=== PATIENT | female | born 1960 | race Caucasian/White ===

== ENCOUNTER → 2018-08-17 09:56 | Outpatient (CLI) | payer BC, SELFPAY ==
--- NOTE | 2018-08-17 10:02 | XR_ITS ---
XR foot wt bearing RT 3V HISTORY: ITS.REASON: pain ORDERING PHYSICIAN: Lula Mcelroy DPM PATIENT AGE: 58 years COMPARISON: None FINDINGS: There is normal alignment. Osteoarthritic changes are present at the first metatarsophalangeal joint. There is minimal ossification dorsally at the metatarsal tarsal joint. A small calcaneal spurs present. There is a spur projecting along the dorsal and distal aspect of the first metatarsal measuring 5 mm. IMPRESSION: Osteoarthritic changes
--- NOTE | 2018-08-17 10:02 | XR_ITS ---
XR foot wt bearing LT 3V HISTORY: ITS.REASON: Pain ORDERING PHYSICIAN: Lula Mcelroy DPM PATIENT AGE: 58 years COMPARISON: None FINDINGS: No fracture or dislocation. No lytic or blastic change. There is normal mineralization.. The joint spaces are well-preserved. No significant degenerative/arthritic changes. No erosive changes evident. There is mild bony hypertrophy dorsally at the cuneiform area. There is a small calcaneal spur. IMPRESSION: Mild degenerative changes, no acute finding
== END ==
PROVIDERS: Visit Provider Podiatrist
DX: M79.672 Pain in left foot (principal); M79.671 Pain in right foot; M19.072 Primary osteoarthritis, left ankle and foot; M19.071 Primary osteoarthritis, right ankle and foot
CPT/HCPCS: 73630

== ENCOUNTER 2020-03-09 16:10 | Emergency (ER) | payer BC, SELFPAY ==
[2020-03-09 16:20] VITALS: BP 133/106; PULSE 124; RESP 20; TEMP 37; O2SAT 96; BMI 35.5
--- NOTE | 2020-03-09 16:41 | HMH.EDUTC ---
[facility] [place] Clinical Impression: Encounter for laboratory testing for COVID-19 virus, Close exposure to COVID-19 virus Disposition: Home, Self-Care Condition on Discharge: Good Instructions: DI for Cough -- Adult, Preventing the Spread of Coronavirus Discharge Instructions Additional Instructions: *Monitor Temp, Over the counter Motrin or Tylenol as directed/as needed Tylenol every 4 hours and Motrin every 6 hours (as long as your family doctor has told you that you can take it) for fever or pain. and straight to ER if unable to lower temp less than 101.0 after medication given *Warm salt water gargles may help to soothe the throat *Throat Lozenges *Warm fluids like tea with honey may help to soothe the throat *Sleep elevated *Humidifier/Vaporizer *Flonase 2 sprays in each nostril daily but be aware that it may take 2-3 days before you notice improvement Follow up IMMEDIATELY for new or worsening symptoms or no Noticeable improvement over the next 48-72 hours. 911 for difficulty breathing or swallowing You was tested for today for COVID19 your test result should be back in the next 24-48 hours, you may call back on Friday to see if your test results are back and the result You was given a handout with instructions for Self Quarantine and Self isolation for while you wait on test results and what to do if they are positive Referrals: PCP,No [Primary Care Provider] - As needed Forms: Work/School Release Time of Disposition: 16:46 Medical Decision Making - Delmar Inquiry Pt receiving controlled substance: No Delmar was queried for this patient: No Vital Signs: 03/09/20 16:20 03/09/20 16:45 03/09/20 16:47 Temperature 98.6 F 98.6 F Temperature Source Oral Pulse Rate 109 H Pulse Rate [Right Brachial] 124 H 109 H Respiratory Rate 20 20 Blood Pressure 128/92 H Blood Pressure [Right Arm] 133/106 H 128/92 H Blood Pressure Mean [Right Arm] 115 104 Blood Pressure Source [Right Arm] Automatic Cuff Automatic Cuff Blood Pressure Position [Right Arm] Sitting Sitting 02 Sat by Pulse Oximetry 96 Oxygen Delivery Method Room Air Orders (Tests/Meds): ORDERS Category Date Time Status Covid-19 Nasal PCR Sendout [facility] Stat Lab 03/09/20 16:25 [place] [facility] [place] - General Stated complaint: COVID Exposure Time Seen by Provider: 03/09/20 16:41 Mode of Arrival: Ambulatory Source of Information: Patient Limitations: No Limitations Description of Symptoms (Recalled from Triage Doc. by RN): PATIENT C/O BACK AND LEG PAIN AND CHILLS X 2 DAYS. TESTED POSITIVE FOR COVID ON FRIDAY. PATIENT REQUESTING COVID TEST HEENT Symptoms (Recalled from RN notes): No Resp Symptoms (Recalled from RN notes): No Skin Symptoms (Recalled from RN notes): No MS Symptoms (Recalled from RN notes): Yes Functional Status (Recalled from RN notes): WNL - History of Present Illness Provider Complaint: Patient state that her tested positive for COVID about 2 days ago States that she has been having body aches, chills, and feeling achy all over States that she is concerned she may have it now too Denies Shortness of breath states that she come in to get tested - Related Data Home Medications Medication Instructions Recorded Confirmed atorvastatin 80 mg tablet 80 mg PO 30 Days tab 08/17/18 10/05/18 levothyroxine 50 mcg tablet 50 mcg PO 90 Days tab 08/17/18 10/05/18 losartan 100 1 tab PO 30 Days tab 08/17/18 10/05/18 mg-hydrochlorothiazide 25 mg tablet Previous Rx's Medication Instructions Recorded ciclopirox 0.77 % topical gel 1 applic TOPICAL ONCE 90 Days #30 g 08/17/18 diclofenac sodium 1 % topical gel 4 g TOPICAL QID #30 g 08/17/18 Allergies Allergy/AdvReac Type Severity Reaction Status Date / Time Penicillins Allergy Unknown Verified 10/05/18 15:24 Sulfa (Sulfonamide AdvReac Rash Verified 10/05/18 15:24 Antibiotics) - Worker's Comp Is this a Worker's Comp case?: No [facility]
[2020-03-09 16:45] VITALS: BP 128/92; PULSE 109
[2020-03-09 16:47] VITALS: BP 128/92; PULSE 109; RESP 20; TEMP 37; O2SAT 96
[2020-03-11 15:50] LABS: Covid-19 Nasal PCR Sendout Lex Positive
--- NOTE | 2020-03-11 15:58 | PC.NURSE ---
Pt called 03/11/2020 at 1553 and given Covid-19 results. Positive
== END 2020-03-09 16:52 | disposition home or self-care (01) ==
PROVIDERS: Nurse Practitioner Family; Emergency Provider Nurse Practitioner
DX: U07.1 COVID-19 (principal); I10 Essential (primary) hypertension; E78.5 Hyperlipidemia, unspecified; E03.9 Hypothyroidism, unspecified; Z79.899 Other long term (current) drug therapy
CPT/HCPCS: 99202; U0004

== ENCOUNTER 2021-05-25 13:38 | Emergency (ER) | payer BC, SELFPAY ==
[2021-05-25 14:45] VITALS: BP 141/80; PULSE 93; RESP 20; TEMP 37.4; O2SAT 95; BMI 37.9
--- NOTE | 2021-05-25 15:09 | HMH.EDUTC ---
[facility] [place] Disposition Clinical Impression: Viral syndrome Disposition: Home, Self-Care Condition on Discharge: Good Instructions: DI for Viral Syndrome Additional Instructions: *Monitor Temp, Over the counter Motrin or Tylenol as directed/as needed Tylenol every 4 hours and Motrin every 6 hours (as long as your family doctor has told you that you can take it) for fever or pain. and straight to ER if unable to lower temp less than 101.0 after medication given *Warm salt water gargles may help to soothe the throat *Throat Lozenges *Warm fluids like tea with honey may help to soothe the throat *Sleep elevated *Humidifier/Vaporizer Your throat swab was sent for culture. Those results are typically sent to your primary care. Be sure to follow up in 2-3 days with your family doctor/primary care physician if no improvement so they can review those result and treat if necessary. If you don?t have a primary care doctor, I recommend you get one but in the mean time, you will have to return to a walk in clinic Follow up IMMEDIATELY for new or worsening symptoms or no Noticeable improvement over the next 48-72 hours. 911 for difficulty breathing or swallowing You were tested for today for COVID19 your test result should be back in the next 24-48 hours, you may check your results on the [facility] my health Portal if you have trouble logging on you can call Tech Support You was given a handout with instructions for Self Quarantine and Self isolation for while you wait on test results and what to do if they are positive If you are positive the Health Dept will be contacting you also Make sure to take your Vitamins Vit. C Vit D and Zinc if you can take them Prescriptions: Benzonatate [Benzonatate 100mg cap] 100 mg PO Q8HP PRN #15 cap PRN Reason: Cough Transmission Status: Pending to [facility] Referrals: Provider,Referral, [Primary Care Provider] - As needed Time of Disposition: 15:36 Medical Decision Making - Delmar Inquiry Pt receiving controlled substance: No Delmar was queried for this patient: No Vital Signs: 05/25/21 14:45 Temperature 99.3 F Temperature Source Oral Pulse Rate [Right Brachial] 93 H Respiratory Rate 20 Blood Pressure [Right Arm] 141/80 H Blood Pressure Mean [Right Arm] 100 Blood Pressure Source [Right Arm] Automatic Cuff Blood Pressure Position [Right Arm] Sitting 02 Sat by Pulse Oximetry 95 Oxygen Delivery Method Room Air - Lab Data Lab results reviewed: Yes: I reviewed the patient's lab results. Lab Results 05/25/21 15:06: Group A Strep Rapid Negative 05/25/21 15:06: Influenza Type A Ag Negative, Influenza Type B Ag Negative Orders (Tests/Meds): ORDERS Category Date Time Status Covid-19 Nasal PCR ([facility]) Routine Lab 05/25/21 15:06 Received Strep Screen Confirmation Stat Micro 05/25/21 15:06 Received [facility] [place] HPI - General Stated complaint: covid symptoms Time Seen by Provider: 05/25/21 15:09 Mode of Arrival: Ambulatory Source of Information: Patient Limitations: No Limitations Description of Symptoms (Recalled from Triage Doc. by RN): PATIENT C/O SOA, SINUS DRAINAGE AND FATIGUE HEENT Symptoms (Recalled from RN notes): No Resp Symptoms (Recalled from RN notes): Yes Skin Symptoms (Recalled from RN notes): No MS Symptoms (Recalled from RN notes): No Functional Status (Recalled from RN notes): WNL - History of Present Illness Provider Complaint: Patient states that she wanted to get tested for COVID Flu and Strep and get her lungs listened too States that she noticed a few days ago she was having some sinus drainage in the back of her throat and felt tired and achy States that today she was still not feeling well so she came in to get checked State that at times she gets a little winded but has been seeing the Tax Accountant due to that - Related Data Home Medications Medication Instructions Recorded Confirmed atorvastatin 80 mg tablet 80 mg PO 30 Days tab 08/17/18
[2021-05-25 15:17] LABS: UTC Influenza A Antigen Negative (Negative); UTC Influenza B Antigen Negative (Negative)
[2021-05-25 15:34] LABS: Strep Scrn Group A (Rapid) Negative (Negative)
[2021-05-25 15:37] VITALS: BP 141/80; PULSE 93; RESP 20; TEMP 37.4; O2SAT 95
== END 2021-05-25 15:49 | disposition home or self-care (01) ==
PROVIDERS: Emergency Provider Nurse Practitioner
DX: U07.1 COVID-19 (principal); E03.9 Hypothyroidism, unspecified; I10 Essential (primary) hypertension; E78.5 Hyperlipidemia, unspecified
CPT/HCPCS: 87430; 87804; 99203; C9803; G0463; U0003; U0005

== ENCOUNTER → 2021-09-21 11:09 | Outpatient (CLI) | payer BC, SELFPAY ==
--- NOTE | 2021-09-21 11:26 | XR_ITS ---
FINAL REPORT CLINICAL HISTORY: SHORTNESS OF AIR ON EXERTION FINDINGS: Two views of the chest were obtained. The heart size and pulmonary vascularity are within normal limits. The mediastinum is normal. No acute pulmonary abnormality is identified. There is no pneumothorax. The bony thorax is intact. IMPRESSION: No active cardiopulmonary disease. Reviewed, Interpreted and Dictated by José Miguel Brandon III, MD Transcribed by Janene Bladerrama Authenticated by José Miguel Brandon III, MD on 09/21/2021 01:37:29 PM [facility]
[2021-09-21 11:58] LABS: Basophils % 0.6 % (0.1-2.0); Eosinophils # 0.1 K/mm3 (0.0-0.4); Hematocrit 41.3 % (37.0-47.0); Hemoglobin 13.7 g/dL (12.2-16.2); Lymphocytes # 1.9 K/mm3 (0.7-4.5); Lymphocytes % 38.4 % (10-50); Mean Corpuscular HGB Conc 33.2 g/dL (31.8-35.4); Mean Corpuscular Hemoglobin 28.9 pg (27.0-31.2); Mean Corpuscular Volume 87.3 fl (81-99); Mean Platelet Volume 9.3 fl (7.4-10.4); Monocytes # 0.3 K/mm3 (0.1-1.0); Neutrophils # 2.6 K/mm3 (1.8-7.8); Platelet Count 227 K/mm3 (142-424); Red Blood Count 4.74 M/mm3 (4.20-5.40); Red Cell Distribution Width 13.9 % (11.5-17.5); White Blood Count 4.9 K/mm3 (4.8-10.8)
[2021-09-21 12:34] LABS: Alanine Aminotransferase 35 U/L (12-78); Albumin Level 4.3 g/dl (3.5-5.0); Albumin/Globulin Ratio 1.9 (1.1-1.8); Alkaline Phosphatase 104 U/L (38-126); Anion Gap 11.4 mEq/L (5-15); Aspartate Amino Transferase 31 U/L (14-36); Bilirubin,Total 1.1 mg/dl (0.2-1.3); Blood Urea Nitrogen 15 mg/dl (7-17); Calcium 9.2 mg/dl (8.4-10.2); Carbon Dioxide 28 mmol/L (22.0-30.0); Chloride 101 mmol/L (98-107); Chol/HDL Ratio 4.2 (1-3.5); Cholesterol 267 mg/dl (140-200); Estimated Glomerular Filt Rate 64 ml/min (>60); GFR (African American) 77 ML/MIN (>60); Globulin 2.3 g/dL (1.3-3.2); Glucose 111 mg/dl (74-100); HDL Cholesterol 63 mg/dl (40-60); Potassium 4.4 mmoL/L (3.5-5.1); Sodium 136 mmol/L (136-145); Total Protein,Serum 6.6 g/dl (6.3-8.2); Triglycerides 99 mg/dl (30-150); VLDL Cholesterol 20 mg/dL (0-40)
[2021-09-21 12:44] LABS: Direct LDL Cholesterol 163.71 mg/dL (100-129)
[2021-09-21 12:50] LABS: Free T4 (Free Thyroxine) 1.16 ng/dl (0.78-2.19)
[2021-09-21 13:04] LABS: Thyroid Stimulating Hormone 2.82 uIU/mL (0.465-4.68)
[2021-09-21 13:40] LABS: Vitamin B12 315 pg/mL (239-931)
== END ==
PROVIDERS: PCP Nurse Practitioner Family; Visit Provider Nurse Practitioner Family
DX: R06.09 Other forms of dyspnea (principal)
CPT/HCPCS: 36415; 71046; 80053; 80061; 82306; 82607; 82746; 83036; 84439; 84443; 85025

== ENCOUNTER → 2022-03-12 08:15 | Outpatient (CLI) | payer BC, SELFPAY ==
--- NOTE | 2022-03-12 08:17 | MM_ITS ---
PROCEDURE INFORMATION: Exam: Bilateral Screening 3D Mammography Exam date and time: 03/12/2022 8:18 AM Age: 61 years old Clinical indication: Screening examination. Her brother had breast cancer. TECHNIQUE: Imaging protocol: Bilateral Screening tomosynthesis and 2D mammography including computer-aided detection (CAD) when performed. COMPARISON: 1. Note that the prior mammograms are corrupted and cannot be used for comparison. If other prior mammograms are provided, I am happy to add an addendum. 2. BOB ROBERT DIGITAL SCREEN BILATERAL 01/24/2021 11:32 AM FINDINGS: MAMMOGRAPHY: Breast composition: The breasts are heterogeneously dense, which may obscure small masses. Mass: None. Architectural distortion: None. Calcifications: No suspicious calcifications. Asymmetric density: None. Skin thickening: None. Axillary adenopathy: None. IMPRESSION: Note comment regarding prior mammograms No mammographic evidence of malignancy. Annual screening is recommended unless otherwise clinically indicated. ASSESSMENT: BI-RADS Category 1: Negative
== END ==
PROVIDERS: PCP Nurse Practitioner Family; Visit Provider Nurse Practitioner Family
DX: Z12.31 Encounter for screening mammogram for malignant neoplasm of breast (principal)
CPT/HCPCS: 77063; 77067

== ENCOUNTER → 2022-06-21 14:12 | Outpatient (CLI) | payer BC, SELFPAY ==
--- NOTE | 2022-06-21 | XR_ITS ---
FINAL REPORT CLINICAL HISTORY: .pain FINDINGS: AP, oblique and lateral views of the left foot were obtained. There is no prior exam for comparison. There is no acute fracture or dislocation. There is multi joint degenerative disease, most pronounced at the midfoot. Soft tissues are normal. IMPRESSION: No acute osseous abnormality of the left foot. Multi joint degenerative disease. Reviewed, Interpreted and Dictated by Yadi Cabello MD Transcribed by Sulema San Authenticated and [facility]
--- NOTE | 2022-06-21 | XR_ITS ---
FINAL REPORT CLINICAL HISTORY: .pain FINDINGS: AP and lateral views of the left knee were obtained. There is no prior exam for comparison. There is no acute fracture or dislocation. There is degenerative joint disease. No joint effusion is identified. Soft tissues are normal. IMPRESSION: No acute osseous abnormality of the left knee. Degenerative joint disease. Reviewed, Interpreted and Dictated by Yadi Cabello MD Transcribed by Sulema San Authenticated and [facility]
--- NOTE | 2022-06-21 14:21 | XR_ITS ---
FINAL REPORT CLINICAL HISTORY: PAIN FINDINGS: AP and lateral views of the right knee were obtained. There is no prior exam for comparison. There is no acute fracture or dislocation. There is degenerative joint disease. No joint effusion is identified. Soft tissues are normal. IMPRESSION: No acute osseous abnormality of the right knee. Degenerative joint disease. Reviewed, Interpreted and Dictated by Yadi Cabello MD Transcribed by Sulema San Authenticated and [facility]
--- NOTE | 2022-06-21 14:21 | XR_ITS ---
FINAL REPORT CLINICAL HISTORY: PAIN COMPARISON: none FINDINGS: Three views of the right hand were obtained. There is no prior exam for comparison. There is no acute fracture or dislocation. There is multi joint degenerative disease most pronounced at the 1st carpometacarpal joint. No acute soft tissue abnormality. IMPRESSION: Degenerative changes with no acute osseous abnormality of the right hand. Reviewed, Interpreted and Dictated by Yadi Cabello MD Transcribed by Janene Balderrama Authenticated and [facility]
--- NOTE | 2022-06-21 14:21 | XR_ITS ---
FINAL REPORT CLINICAL HISTORY: PAIN COMPARISON: none FINDINGS: Three views of the left hand were obtained. There is no prior exam for comparison. There is no acute fracture of the left hand. There is multi joint degenerative disease most pronounced at the 1st carpometacarpal joint. No acute soft tissue abnormality. IMPRESSION: Degenerative changes with no acute osseous abnormality of the left hand. Reviewed, Interpreted and Dictated by Yadi Cabello MD Transcribed by Janene Balderrama Authenticated and [facility]
--- NOTE | 2022-06-21 14:21 | XR_ITS ---
FINAL REPORT CLINICAL HISTORY: PAIN COMPARISON: 08/17/2018 FINDINGS: AP, oblique and lateral views of the right foot were obtained. There is no prior exam for comparison. There is no acute fracture or dislocation. There is multi joint degenerative disease, most pronounced at the 1st metatarsophalangeal joint. Soft tissues are normal. IMPRESSION: No acute osseous abnormality of the right foot. Multi joint degenerative disease. Reviewed, Interpreted and Dictated by Yadi Cabello MD Transcribed by Sulema San Authenticated and [facility]
== END ==
PROVIDERS: PCP Nurse Practitioner Family; Visit Provider Internal Medicine Rheumatology
DX: M79.641 Pain in right hand (principal); M79.642 Pain in left hand; M25.561 Pain in right knee; M25.562 Pain in left knee; M79.671 Pain in right foot; M79.672 Pain in left foot
CPT/HCPCS: 73130; 73560; 73630

== ENCOUNTER → 2022-07-26 15:34 | Outpatient (CLI) | payer BC, SELFPAY ==
[2022-07-26 16:16] LABS: Basophils # 0.1 K/mm3 (0-0.2); Basophils % 1.1 % (0.1-2.0); Eosinophils # 0.1 K/mm3 (0.0-0.4); Eosinophils % 1.7 % (0.1-12.0); Hematocrit 42.8 % (37.0-47.0); Hemoglobin 13.7 g/dL (12.2-16.2); Lymphocytes # 2.1 K/mm3 (0.7-4.5); Lymphocytes % 32.4 % (10-50); Mean Corpuscular HGB Conc 32.1 g/dL (31.8-35.4); Mean Corpuscular Hemoglobin 28.9 pg (27.0-31.2); Mean Corpuscular Volume 89.9 fl (81-99); Mean Platelet Volume 10.4 fl (7.4-10.4); Monocytes # 0.3 K/mm3 (0.1-1.0); Monocytes % 5.1 % (1.7-9.3); Neutrophils # 3.8 K/mm3 (1.8-7.8); Neutrophils % 59.6 % (37.0-80.0); Platelet Count 215 K/mm3 (142-424); Red Blood Count 4.75 M/mm3 (4.20-5.40); Red Cell Distribution Width 14.5 % (11.5-17.5); White Blood Count 6.4 K/mm3 (4.8-10.8)
[2022-07-26 16:21] LABS: Chloride 102 mmol/L (98-107); Potassium 4.1 mmoL/L (3.5-5.1); Sodium 138 mmol/L (136-145)
[2022-07-26 16:24] LABS: Alanine Aminotransferase 24 U/L (12-78); Albumin Level 4.4 g/dl (3.5-5.0); Albumin/Globulin Ratio 1.8 (1.1-1.8); Alkaline Phosphatase 101 U/L (38-126); Anion Gap 12.1 mEq/L (5-15); Aspartate Amino Transferase 26 U/L (14-36); Blood Urea Nitrogen 13 mg/dl (7-17); Calcium 9.1 mg/dl (8.4-10.2); Carbon Dioxide 28 mmol/L (22.0-30.0); Estimated Glomerular Filt Rate 56 ml/min (>60); GFR (African American) 68 ML/MIN (>60); Globulin 2.5 g/dL (1.3-3.2); Glucose 102 mg/dl (74-100); Total Protein,Serum 6.9 g/dl (6.3-8.2)
[2022-07-26 16:55] LABS: Thyroid Stimulating Hormone 2.97 uIU/mL (0.465-4.68)
== END ==
PROVIDERS: PCP Internal Medicine Adolescent Medicine; Visit Provider Nurse Practitioner Family
DX: I10 Essential (primary) hypertension (principal); E03.9 Hypothyroidism, unspecified
CPT/HCPCS: 36415; 80053; 84443; 85025

== ENCOUNTER → 2022-09-02 13:57 | Outpatient (POV) | payer BC, SELFPAY ==
[2022-09-02 15:46] VITALS: BP 145/75; PULSE 97; RESP 18; O2SAT 96; BMI 38.7
--- NOTE | 2022-09-02 16:29 | EXP.PAIN.OV ---
HPI Data of Consult Patient: new to practice Consult date: 09/02/22 Requesting Physician: Salena Sky APRN Primary Care Provider: Hilary Connor APRN Consult Narrative Reason for consult: Bilateral knee pain, bilateral feet pain History of present illness: Ms. Zuniga is a 62 year old female who presents today as a new patient. She is a referral from Dr. Carey's office. Today she rates her pain a 5 out of 10. She states her pain is all in her bilateral knees and bilateral feet. Patient states this has been going on for years and progressively worsen. She denies any specific trauma or injury that initially started her pain. She states that she has worked on her feet for the last 35 years and does just believe it is related to this. She does describe her pain as a stiff, achy sensation that is fairly constant. She does state that she is scheduled to see podiatry Friday. Patient has previously had injections into her bilateral knees however it was approximately 10 years ago. She states that they would help for approximately 1 to 2 months however she did not find it significant enough to continue having them done. Patient had previously been on Celebrex written by a tv news director however she started having significant low back pain and this was listed as a possible side effect. Patient did discontinue the Celebrex and the back pain did get better. Patient does have a history of heart palpitations and a heart murmur and currently sees Dr. Ocampo in [place]. Patient has tried Tylenol along with heat and topicals that only provide temporary relief. Patient denies any physical therapy or chiropractor history. Patient has not had any back surgery in the past. She does state that she is not necessarily a fan of injections. Patient is not currently on any scheduled medications. Her Delmar is [phone]. Its been reviewed and appropriate. CC: Salena Sky APRN [facility] Disclaimer: The information contained in this section may have been updated after the patient was seen, as this information can be updated by other users. Medical History (Updated 09/02/22 @ 16:36 by Salena Sky APRN) GERD (gastroesophageal reflux disease) HLD (hyperlipidemia) HTN (hypertension) Hypothyroidism Surgical History (Updated 09/02/22 @ 15:47 by Elle Lambert RN) H/O: hysterectomy Family History Other Coronary artery disease Stroke Social History (Updated 09/02/22 @ 15:47 by Elle Lambert RN) Smoking Status: Never smoker alcohol intake: never substance use type: denies use current occupational status: employed Travel in the last 8 weeks: None household members: spouse housing: house marital status: Review of Systems Review of Systems Review of systems:: pertinent systems reviewed and negative unless documented below Review of systems (narrative): Review of Systems: General: No recent weight changes, no fever, no sleep disturbances Respiratory: No cough, no shortness of air, no recurring pulmonary infections Cardiovascular/peripheral vascular: No chest pain, no palpitations, no edema, no shortness of breath Gastrointestinal: No new onset incontinence, normal bowel movements reported Genitourinary: No new onset incontinence Musculoskeletal: Bilateral knee pain, bilateral feet pain Psychiatric: [Normal mood/affect] Neurological: [Denies weakness in extremities], [denies balance issues] Meds Home Medications and Allergies Home Medications Medication Instructions Recorded Confirmed Type aspirin 81 mg tablet,delayed 81 mg PO DAILY Blood thinner 06/13/22 09/02/22 History release atorvastatin 80 mg tablet 40 mg PO HS Cholesterol 30 days 06/13/22 09/02/22 History #15 tabs ergocalciferol (vitamin D2) 1,250 50,000 unit PO .COMPLEX SUPPLIMENT 06/13/22 09/02/22 History mcg (50,000 unit) capsule ibuprofen 200 mg capsule 200 mg PO Q6H
== END | disposition home or self-care (01) ==
PROVIDERS: PCP Nurse Practitioner Family; Visit Provider Nurse Practitioner Family
DX: M17.0 Bilateral primary osteoarthritis of knee (principal); M25.561 Pain in right knee; M25.562 Pain in left knee; M79.671 Pain in right foot; M79.672 Pain in left foot
CPT/HCPCS: 99202; G0463

== ENCOUNTER → 2022-09-26 13:49 | Outpatient (POV) | payer BC, SELFPAY ==
[2022-09-26 14:08] VITALS: BP 155/84; PULSE 88; RESP 20; O2SAT 96; BMI 38.7
--- NOTE | 2022-09-26 14:09 | EXP.PAIN.SOA ---
[facility] Pain Management SOAP Note Subjective:: Patient is a pleasant 62-year-old female who presents today for 1 month follow-up. We are currently treating the patient for bilateral knee and feet pain, osteoarthritis bilateral knees. Today she rates her pain an 8 out of 10. Patient denies any new trauma or injury. Patient denies any change in location or type of pain she experiences. At her last visit we did prescribe her methocarbamol 500 mg at bedtime along with compounding cream. She states that she has noticed improvement with the Robaxin at bedtime as well as the cream. Patient denies any side effects from these medications. She is requesting a refill of the muscle relaxer. Patient is not on any scheduled medications. Her Delmar is [phone]. Has been reviewed and appropriate. Review of Systems: General: No recent weight changes, no fever, no sleep disturbances Respiratory: No cough, no shortness of air, no recurring pulmonary infections Cardiovascular/peripheral vascular: No chest pain, no palpitations, no edema, no shortness of breath Gastrointestinal: No new onset incontinence, normal bowel movements reported Genitourinary: No new onset incontinence Musculoskeletal: Bilateral knee pain, bilateral feet pain Psychiatric: [Normal mood/affect] Neurological: [Denies weakness in extremities], [denies balance issues] Objective:: Physical Exam: General: Alert and oriented x3, no acute distress, pleasant and cooperative Lungs: Respirations even and unlabored, symmetrical chest expansion Eyes: PERRL Musculoskeletal: Flexion and extension of bilateral knees somewhat guarded secondary to pain, [antalgic gait noted] Neurological: Speech clear, no gross sensory deficit Assessment:: Bilateral feet and knee pain, osteoarthritis bilateral knees Plan:: Patient did have improvement with the combination of compounding cream and Robaxin. I will refill her methocarbamol 500 mg and change it to 3 times daily and provide a 1 month supply of this medication. Previously we did talk about doing a genicular nerve block for her knee pain however at this time she still would like to wait. Patient will return to clinic in 1 month for reevaluation of symptoms, medication refill and follow-up. Patient has been instructed to contact the clinic with any concerns before the next appointment. Dr. Comer has reviewed this note and agrees with this plan of care. This note was dictated using voice recognition software and make contain errors or omissions. [facility] Disclaimer: The information contained in this section may have been updated after the patient was seen, as this information can be updated by other users. Medical History (Updated 09/02/22 @ 16:36 by Salena Sky APRN) GERD (gastroesophageal reflux disease) HLD (hyperlipidemia) HTN (hypertension) Hypothyroidism Surgical History (Updated 09/02/22 @ 15:47 by Elle Lambert RN) H/O: hysterectomy Family History Other Coronary artery disease Stroke Social History (Updated 09/02/22 @ 15:47 by Elle Lambert RN) Smoking Status: Never smoker alcohol intake: never substance use type: denies use current occupational status: employed Travel in the last 8 weeks: None household members: spouse housing: house marital status:
== END | disposition home or self-care (01) ==
PROVIDERS: PCP Nurse Practitioner Family; Visit Provider Nurse Practitioner Family
DX: M17.0 Bilateral primary osteoarthritis of knee (principal); M25.561 Pain in right knee; M25.562 Pain in left knee; M79.671 Pain in right foot; M79.672 Pain in left foot
CPT/HCPCS: 99212; G0463

== ENCOUNTER → 2023-05-22 13:25 | Outpatient (POV) | payer BC, SELFPAY ==
[2023-05-22 14:23] VITALS: BP 154/68; PULSE 90; RESP 18; O2SAT 94; BMI 39.5
--- NOTE | 2023-05-22 15:05 | A.OFFVIS_ITS ---
[facility] Pain Management SOAP Note Subjective:: Patient is a pleasant 62-year-old female that presents today for follow-up. We are currently treating the patient for bilateral knee and feet pain, osteoarthritis bilateral knees. Today she rates her pain an 8 out of 10. Patient states her pain is at her bilateral knees, low back and shoulders. Patient denies any new trauma or injury. She does state that the worst area is still her bilateral knees. Patient denies any previous knee replacements. Patient does describe this as a aching sensation that is worse with increased activity. Patient states this pain has been going on for more than 10 years. Patient does state that there had been a previous orthopedic doctor she went to at the beginning who did do some injections and that they would help but typically only around 2 weeks. Patient does state it has been at least 10 years since she has had any injections in these joints. Patient does state the pain interferes with her ability perform activities of daily living such as cooking and cleaning. Patient is interested in any help we may be able to provide. She does state that the last muscle relaxer of methocarbamol did not seem to be really making much of a difference so she is discontinued it. Patient does use her compounded cream however she states that sometimes it seems to do better than others. Patient states she will occasionally use ibuprofen and that Tylenol arthritis did not seem to make much difference. Patient does state that she has a history of plaque buildup and does see a head of transport logistics on a regular basis. Her Delmar has been reviewed and is appropriate. Review of Systems: General: No recent weight changes, no fever, no sleep disturbances Respiratory: No cough, no shortness of air, no recurring pulmonary infections Cardiovascular/peripheral vascular: No chest pain, no palpitations, no edema, no shortness of breath Gastrointestinal: No new onset incontinence, normal bowel movements reported Genitourinary: No new onset incontinence Musculoskeletal: Bilateral knee pain Psychiatric: [Normal mood/affect] Neurological: [Denies weakness in extremities], [denies balance issues] Objective:: Physical Exam: General: Alert and oriented x3, no acute distress, pleasant and cooperative Lungs: Respirations even and unlabored, symmetrical chest expansion Eyes: PERRL Musculoskeletal: Flexion and extension of bilateral knees somewhat guarded secondary to pain, [antalgic gait noted] Neurological: Speech clear, no gross sensory deficit Assessment:: Osteoarthritis bilateral knees, bilateral knee and feet pain, low back pain, shoulder pain Plan:: Patient continues to experience significant pain in her bilateral knees with limited range of motion I have discussed with the patient that she may benefit from intra-articular knee injections. Risk and benefits were discussed with patient and she would like to proceed forward with this plan of care. Patient does have concerns of cost with her insurance. I have recommended that she reach out to her insurance and get a quote for the lizama of these injections prior to proceeding forward. I have counseled the patient that we do have a outpatient clinic setting in [place] if the cost for in the hospital versus outpatient setting is significantly different and she would like to proceed forward with the injections at this location. I will send in a 14-day supply of baclofen 5 mg twice daily. Patient will be scheduled for intra-articular knee injections. Patient has been instructed to contact the clinic with any concerns before the next appointment. Dr. Comer has reviewed this note and agrees with this plan of care. This note was dictated using voice recognition software and make contain errors or omissions. [facility] Disclaimer: The information contained in this section may have been updated after the patient was seen, as this information can be updated by other users. Medical History (Updated 09/02/22 @ 16:36 by Salena Sky APRN) GERD (gastroesophageal reflux disease) HLD (hyperlipidemia) HTN (hypertension) Hypothyroidism Surgical History (Updated 09/02/22 @ 15:47 by Elle Lambert RN) H/O: hysterectomy Family History Other Coronary artery disease Stroke Social History (Updated 09/02/22 @ 15:47 by Elle Lambert RN) Smoking Status: Never smoker alcohol intake: never substance use type: denies use current occupational status: employed Travel in the last 8 weeks: None household members: spouse housing: house marital status:
== END | disposition home or self-care (01) ==
PROVIDERS: PCP Nurse Practitioner Family; Visit Provider Nurse Practitioner Family
DX: M17.0 Bilateral primary osteoarthritis of knee (principal); M25.561 Pain in right knee; M25.562 Pain in left knee; M79.671 Pain in right foot; M79.672 Pain in left foot; M54.50 Low back pain, unspecified; M25.511 Pain in right shoulder; M25.512 Pain in left shoulder
CPT/HCPCS: 99212; G0463

== ENCOUNTER 2023-06-17 08:15 | Outpatient (CLI) | payer BC, SELFPAY ==
--- NOTE | 2023-06-17 08:52 | MM_ITS ---
PROCEDURE INFORMATION: Exam: MG Bilateral Screening 3D Mammography Exam date and time: 06/17/2023 8:42 AM Age: 62 years old Clinical indication: Screening mammogram TECHNIQUE: Imaging protocol: Bilateral Screening tomosynthesis and 2D mammography including computer-aided detection (CAD) when performed. COMPARISON: 1. MG MM DIG SCREENING MAMM BI W/CAD 03/12/2022 8:18 AM 2. MG BOB ROBERT DIGITAL SCREEN BILATERAL 01/24/2021 11:32 AM FINDINGS: MAMMOGRAPHY: Breast composition: There are scattered areas of fibroglandular density. Mass: None. Architectural distortion: No new or suspicious architectural distortion. Calcifications: No new or suspicious calcifications are present Asymmetric density: No new or suspicious asymmetric density is present Skin thickening: None. Axillary adenopathy: None. IMPRESSION: No mammographic evidence of malignancy. Recommend annual screening mammography unless otherwise clinically indicated. ASSESSMENT: BI-RADS category 1: Negative
== END 2023-06-17 23:59 ==
LOC: RAD 08:16
PROVIDERS: PCP Nurse Practitioner Family; Visit Provider Family Medicine
DX: Z12.31 Encounter for screening mammogram for malignant neoplasm of breast (principal)
CPT/HCPCS: 77063; 77067

== ENCOUNTER 2024-08-07 11:19 | Outpatient (CLI) | payer BC, SELFPAY ==
[2024-08-07 12:47] LABS: Albumin Level 4.3 g/dl (3.5-5.0); Chloride 102 mmol/L (98-107); Potassium 4.5 mmoL/L (3.5-5.1); Sodium 137 mmol/L (136-145)
[2024-08-07 12:50] LABS: Alanine Aminotransferase 66 U/L (12-78); Albumin/Globulin Ratio 1.5 (1.1-1.8); Alkaline Phosphatase 127 U/L (38-126); Anion Gap 16.5 mEq/L (5-15); Aspartate Amino Transferase 94 U/L (14-36); Bilirubin,Total 1.4 mg/dl (0.2-1.3); Blood Urea Nitrogen 10 mg/dl (7-17); Carbon Dioxide 23 mmol/L (22.0-30.0); Estimated Glomerular Filt Rate 72 ml/min (>60); GFR (African American) 87 ML/MIN (>60); Globulin 2.9 g/dL (1.3-3.2); Total Protein,Serum 7.2 g/dl (6.3-8.2)
[2024-08-07 12:51] LABS: Calcium 9.2 mg/dl (8.4-10.2); Glucose 110 mg/dl (74-100)
[2024-08-10 05:29] LABS: HBsAg Screen Negative (Negative); HCV Ab Non Reactive (Non Reactive); Hep A Ab, IGM Negative (Negative); Hep B Core Ab, IgM Negative (Negative)
--- OUTSIDE RECORDS SUMMARY | 2024-08-12 19:47 | XMS_ITS | Data Portability ---
Author Organization [place] [facility] ADMIN Address [address] [place] [id number] Care Team Providers Care Cvicu Rn Name Role Phone HILARY POOL Primary Care Provider [phone] Assessment Encounter Date Assessment Date Assessment LastModified by Organization Details LastModified Time 03/20/2023 03/20/2023 overall doing well. No chest pain or pressure. Palpitations improved. Echocardiogram showed normal function of the heart of 65-70%. She does have diastolic dysfunction. No valvular insufficiency this time.. We will continue the same medical regimen. Continue to monitor blood pressure and heart rate. Continue Lasix at current dose. Continue beta-julio cesar. Completely asymptomatic at this point. -EKG today shows sinus rhythm with rate of 91 with RSR in the precordial leads with poor R-wave progression. Consider stress test at follow-up Monitor blood pressure and heart rate Continue beta-julio cesar and Lasix EKG at follow-up Follow up in Cardiology Clinic in 5-6 months Plan: -Continue other current medications. -Continue aggressive risk factor modification. -Recommend LDL less than 100. -Encouraged regular exercise and activity. Patient Education was printed, I have reviewed the Past Medical, Family, and Social Histories along with ROS and all orders in today's record, and have noted any changes. Medications, charts and records reviewed in full today. EKG 06/21/2002 NSR LAST ECHO: 07/05/2022 EJECTION FRACTION 65-70%. [id number] LVH. NORMAL VALVES LAST ISCHEMIC EVAL: 12/19/2020 ABNORMAL EXERCISE EKG. MODERATE REDUCTION IN FUNCTIONAL CAPACITY. ISCHEMIA OF THE APICAL, APICAL ANTERIOR AND APICAL LATERAL LE. HYPERDYNAMIC LEFT VENTRICULAR SYSTOLIC FUNCTION. LAST HEART CATH: 03/27/2021 [facility]. LVEDP 8. TRIVIAL CORONARY ARTERY DISEASE [id number] DIFFUSE CORONARY CALCIFICATION. LAST LDL: 10/22/2018- This note was dictated using RoboEd software. If something is unclear, or does not make sense, please do not hesitate to contact our office at [phone] for clarification. [email or web address] Not available 03/20/2023 15:47:11 11/17/2023 11/17/2023 Increasing cardi ac symptoms. All the palpitations have improved she has now had pressure and tightness in the chest with shortness of breath and left arm and jaw pain. It has been awhile since we have done an ischemic evaluation. It has been 3 years. She has known trivial coronary disease. We will do an echocardiogram and Myoview. Blood pressure on recheck 129/82. The heart rate is 90. Her EKG shows normal sinus rhythm with nonspecific ST and T-wave changes and right bundle. With the shortness of breath and edema we will repeat the echocardiogram. She does have known diastolic dysfunction. We will see what the pressures looked like in the heart. Meds and chart reviewed in full today. Follow-up in 3-4 weeks in Cardiology Clinic Continue current medications Risk factor modification Recommend LDL less than 100 Continue aspirin daily Continue beta-julio cesar Continue losartan Continue Lasix at current dose Monitor blood pressure and heart rate Echocardiogram Exercise Myoview Follow-up in Cardiology Clinic in 3-4 weeks EKG Today shows normal sinus rhythm with incomplete right bundle-branch block and nonspecific ST and T-wave changes. This is slightly changed from baseline LAST ECHO: 07/05/2022 EJECTION FRACTION 65-70%. [id number] LVH. NORMAL VALVES LAST ISCHEMIC EVAL: 12/19/2020 ABNORMAL EXERCISE EKG. MODERATE REDUCTION IN FUNCTIONAL CAPACITY. ISCHEMIA OF THE APICAL, APICAL ANTERIOR AND APICAL LATERAL LE. HYPERDYNAMIC LEFT VENTRICULAR SYSTOLIC FUNCTION. LAST HEART CATH: 03/27/2021 [facility]. LVEDP 8. TRIVIAL CORONARY ARTERY DISEASE ASGE-AK-RQUQAISE DIFFUSE CORONARY CALCIFICATION. LAST LDL: 10/22/2018- [email or web address] Not available 11/20/2023 15:35:11 12/19/2023 12/19/2023 echocardiogram looked good. Ejection fraction hyperdynamic. She has some diastolic dysfunction. She does have edema on examination. Trace to 1+. To the mcdowell. I am going to increase Lasix to 40 mg. Add Aldactone 25 mg. She is also having reflux. Will add omeprazole 40 mg daily. I am going to check blood work and also check blood work for fatigue she does have this. I will see her back in 6-8 weeks. The Myoview stress test showed no ischemia. Meds and chart reviewed in full today. The blood pressure and heart rate are under good control. Continue nebivolol PLAN: Encourage exercise and weight loss Continue nebivolol Increase Lasix to 40 mg daily Add Aldactone 25 mg daily BNP, liver function, magnesium level, CBC, TSH, thyroid function and vitamin levels in 2 weeks Omeprazole 40 mg daily Continue current medications Risk factor modification Recommend LDL less than 100 Monitor blood pressure and heart rate ECHOCARDIOGRAM : 12/04/2023 -Estimated ejection fraction is 70-75%. There is mild concentric hypertrophy of the left ventricle. There is Doppler evidence for impaired relaxation of the left ventricle. Mild calcification and thickening of the aortic valve leaflets with normal aortic valve leaflet mobility and function. There is no aortic insufficiency. MYOVIEW STRESS TEST : 12/04/2023 - Normal exercise EKG. Marked reduction in functional capacity. Intermediate risk Bentley treadmill score secondary to functional capacity. Normal myocardial perfusion on Myoview imaging. Hyperdynamic left ventricular systolic function. EK11/17/2023 showed normal sinus rhythm with incomplete right bundle-branch block and nonspecific ST and T-wave changes. This is slightly changed from baseline LAST ECHO: 07/05/2022 EJECTION FRACTION 65-70%. [id number] LVH. NORMAL VALVES LAST ISCHEMIC EVAL: 12/19/2020 ABNORMAL EXERCISE EKG. MODERATE REDUCTION IN FUNCTIONAL CAPACITY. ISCHEMIA OF THE APICAL, APICAL ANTERIOR AND APICAL LATERAL LE. HYPERDYNAMIC LEFT VENTRICULAR SYSTOLIC FUNCTION. LAST HEART CATH: 03/27/2021 [facility]. LVEDP 8. TRIVIAL CORONARY ARTERY DISEASE [id number] DIFFUSE CORONARY CALCIFICATION. LAST LDL: 10/22/2018- 81 BAKARI Malagon LPN, I AM SCRIBING FOR, AND IN THE OFFICE/PRESENCE OF, FARHAN RICHMOND MD. FARHAN Malagon M.D. PERFORMED THE SERVICES DESCRIBED IN THIS DOCUMENTATION, SCRIBED BY BAKARI WONG LPN IN MY PRESENCE, AND IT IS BOTH ACCURATE AND COMPLETE. [email or web address] Not available 12/19/2023 12:43:30 02/20/2024 02/20/2024 Similar complaints. She did not get the blood work done. I think that is the most important thing to do. The blood pressure and heart rate look good. I am sure she would be better off with the higher dose of the water pill which she can not tolerate it. She is on omeprazole now. She is still on nebivolol. Encourage exercise and weight loss. We will see what the blood work shows and see her back in 6-8 weeks. Meds and chart reviewed in full today PLAN: Full blood work Continue beta-julio cesar and diuretic Monitor cardiac symptoms Follow-up in Cardiology Clinic in 6-8 weeks Encourage exercise and weight loss Continue current medications Risk factor modification Recommend LDL less than 100 Monitor blood pressure and heart rate ECHOCARDIOGRAM : 12/04/2023 -Estimated ejection fraction is 70-75%. There is mild concentric hypertrophy of the left ventricle. There is Doppler evidence for impaired relaxation of the left ventricle. Mild calcification and thickening of the aortic valve leaflets with normal aortic valve leaflet mobility and function. There is no aortic insufficiency. MYOVIEW STRESS TEST : 12/04/2023 - Normal exercise EKG. Marked reduction in functional capacity. Intermediate risk Bentley treadmill score secondary to functional capacity. Normal myocardial perfusion on Myoview imaging. Hyperdynamic left ventricular systolic function. EK11/17/2023 showed normal sinus rhythm with incomplete right bundle-branch block and nonspecific ST and T-wave changes. This is slightly changed from baseline LAST ECHO: 07/05/2022 EJECTION FRACTION 65-70%. [id number] LVH. NORMAL VALVES LAST ISCHEMIC EVAL: 12/19/2020 ABNORMAL EXERCISE EKG. MODERATE REDUCTION IN FUNCTIONAL CAPACITY. ISCHEMIA OF THE APICAL, APICAL ANTERIOR AND APICAL LATERAL LE. HYPERDYNAMIC LEFT VENTRICULAR SYSTOLIC FUNCTION. LAST HEART CATH: 03/27/2021 [facility]. LVEDP 8. TRIVIAL CORONARY ARTERY DISEASE [id number] DIFFUSE CORONARY CALCIFICATION. LAST LDL: 10/22/2018- 81 I, BAKARI WONG LPN, I AM SCRIBING FOR, AND IN THE OFFICE/PRESENCE OF, FARHAN RICHMOND MD. I, FARHAN RICHMOND M.D. PERFORMED THE SERVICES DESCRIBED IN THIS DOCUMENTATION, SCRIBED BY BAKARI WONG LPN IN MY PRESENCE, AND IT IS BOTH ACCURATE AND COMPLETE. [email or web address] Not available 02/21/2024 09:01:35 04/16/2024 04/16/2024 Symptoms about t he same. Some mild dyspnea but no significant shortness of breath. Some dizziness and lightheadedness but now she has on an antibiotic. Out of all the blood work she did everything looked great. The only exception is she had mild elevation in the liver function. CRP was mildly elevated but the sed rate was normal. BNP level was normal. Vitamin-D slightly low. I told her to talk to her primary care physician about the vitamin-D. Will get a liver ultrasound and decrease Lipitor to 20 mg that is her cholesterol is at goal. Trivial coronary disease. Blood pressure and heart rate are under excellent control. Follow-up in 8-9 weeks. Meds and chart reviewed in full today PLAN: Liver ultrasound Change atorvastatin to 20 mg from 40 mg Full blood work in 3 months repeated Send blood work to primary care Follow-up in Cardiology Clinic in 8-9 weeks Continue beta-julio cesar and diuretic Monitor cardiac symptoms Encourage exercise and weight loss Continue current medications Risk factor modification Recommend LDL less than 100 Monitor blood pressure and heart rate ECHOCARDIOGRAM : 12/04/2023 -Estimated ejection fraction is 70-75%. There is mild concentric hypertrophy of the left ventricle. There is Doppler evidence for impaired relaxation of the left ventricle. Mild calcification and thickening of the aortic valve leaflets with normal aortic valve leaflet mobility and function. There is no aortic insufficiency. MYOVIEW STRESS TEST : 12/04/2023 - Normal exercise EKG. Marked reduction in functional capacity. Intermediate risk Bentley treadmill score secondary to functional capacity. Normal myocardial perfusion on Myoview imaging. Hyperdynamic left ventricular systolic function. EK11/17/2023 showed normal sinus rhythm with incomplete right bundle-branch block and nonspecific ST and T-wave changes. This is slightly changed from baseline LAST ECHO: 07/05/2022 EJECTION FRACTION 65-70%. [id number] LVH. NORMAL VALVES LAST ISCHEMIC EVAL: 12/19/2020 ABNORMAL EXERCISE EKG. MODERATE REDUCTION IN FUNCTIONAL CAPACITY. ISCHEMIA OF THE APICAL, APICAL ANTERIOR AND APICAL LATERAL LE. HYPERDYNAMIC LEFT VENTRICULAR SYSTOLIC FUNCTION. LAST HEART CATH: 03/27/2021 [facility]. LVEDP 8. TRIVIAL CORONARY ARTERY DISEASE [id number] DIFFUSE CORONARY CALCIFICATION. LAST LDL: 02/20/2024-82 82. The full blood work showed normal basic metabolic panel. Her AST was slightly elevated at 45 with an ALT slightly elevated at 63 and an alk-phos of 126. The HDL cholesterol was 59. Total cholesterol 161 with a triglycerides of 98. Folic acid and B12 were normal. Thyroid function normal. Magnesium level normal. CBC within normal limits. Sed rate normal. CRP slightly elevated. BNP level normal. Vitamin-D slightly low CT HEAD: 10/04/2023- no CT evidence for an acute intracranial process. Soft tissue hematoma in the parietal scalp. IBAKARI LPN, I AM SCRIBING FOR, AND IN THE OFFICE/PRESENCE OF, FARHAN RICHMOND MD. IFARHAN M.D. PERFORMED THE SERVICES DESCRIBED IN THIS DOCUMENTATION, SCRIBED BY BAKARI WONG LPN IN MY PRESENCE, AND IT IS BOTH ACCURATE AND COMPLETE. [email or web address] Not available 04/16/2024 10:44:20 Plan of Treatment Reminders Order Date Submit Date Provider Last Modified By Organization Details Last Modified Time Details Appointments None recorded. Lab TSH + free T4, serum 2023 024 [email or web address] [facility] (Registration ), [address], [place], [address], 4 07:46:54 CMP, serum or plasma 2023 024 [facility] (Registration ), [place], [address], 4 06:14:35 magnesium, serum or plasma 2023 024 [facility] (Registration ), [place], [address], 4 06:14:38 vitamin D, 25-hydroxy, total, serum 2023 [facility] (Registration ), [address], [place], [address], 4 08:18:21 ESR (erythrocyt e sedimentati on rate), blood 2023 [facility] (Registration ), [address], [place], [address], 4 13:11:47 CRP, high sensitivity , serum or plasma [address] (Registration ), [address], [place], [address], 4 07:47:08 lipid panel, serum 2023 [facility] (Registration ), [address], [place], [address], 4 06:14:37 vitamin B12 + folate, serum or blood [address] (Registration ), [address], [place], [address], 4 07:47:20 pro BNP (pro B-type natriuretic peptide), serum or plasma [address] (Registration ), [address], [place], [address], 4 07:47:31 CBC w/ auto diff 2023 [facility] (Registration ), [address], [place], [address], 4 11:35:24 TSH + free T4, serum 2023 [facility] (Registration ), [address], [place], [address], 4 09:12:39 CMP, serum or plasma 2023 024 [facility] (Registration ), [address], [place], [address], 4 09:12:51 magnesium, serum or plasma [address] [place] [address] (Registration ), [address], [place], [address], 4 09:13:05 vitamin D, 25-hydroxy, total, serum [address] [place] [address] (Registration ), [address], [place], [address], 4 09:13:46 vitamin B12 + folate, serum or blood 2023 024 [facility] (Registration ), [address], [place], [address], 4 09:16:53 CBC w/ auto diff 2023 [facility] (Registration ), [address], [place], [address], 4 09:18:10 Referral None recorded. Procedures None recorded. Surgeries None recorded. Imaging US, liver 2023 [facility] (Centralized Scheduling), [address], [place], [address], 5 14:07:21 nuclear stress test [email or web address] [place] [address] (Centralized Scheduling), [address] [place] [address] , [place], [address], 4 10:48:44 electrocard iogram 2023 024 [facility], [address] [place] [address] Dr Foreman, [place], [address], 4 10:41:55 US, echocardiog pacheco, transthorac ic, complete, w/ color flow 2023 024 [email or web address] [facility] (Centralized Scheduling), [address] [place] [address] , [place], [address], 4 12:42:58 electrocard iogram [email or web address], [address] [place] [address] [address], [place], [address], 3 15:11:10 Medication Orders atorvastati n 20 mg tablet 2023 024 [facility], [address], [address], 4 10:41:19 omeprazole 40 mg capsule,del ayed release [address] [facility], [address], [address], 4 11:24:29 furosemide 40 mg tablet 2023 024 [email or web address] [facility], [address], [address], 4 10:05:24 spironolact one 25 mg tablet 2023 024 [facility], [address], [address], 4 10:13:27 nebivolol 5 mg tablet 2022162 023 [facility], [address], [address], 3 15:11:16 Patient TargetsNo targets recorded. Patient InstructionsNo instructions recorded. Reason for Referral None Reported. Results Created Date Observation Date Name Description Value Unit Range Abnormal Flag Note LastModifiedBy Organization Detail LastModifiedTime 02/20/20 24 02/20/2024 CBC W/AUT O DIFFE RENTI AL note SEE NOTE Order ing Provi jessica: Farhan padron MD Not Available [address] , [place], [address], 02/20/2024 11:35:24 02/20/20 24 02/20/2024 CBC W/AUT O DIFFE RENTI AL white blood cell 6.2 10e3/ uL 4.5-13 .0 normal Not Available [address] Gabbie Bautista, [place], [address], 02/20/2024 11:35:24 02/20/20 24 02/20/2024 CBC W/AUT O DIFFE RENTI AL red blood cell 4.40 10e6/ uL 3.80-5 .10 normal Not Available [address] Gabbie Bautista, [place], [address], 02/20/2024 11:35:24 02/20/20 24 02/20/2024 CBC W/AUT O DIFFE RENTI AL hemoglobin 13.2 g/dL 11.5-1 5.3 normal Not Available [address] [place]abb[place] Bautista, [place], [address], 02/20/2024 11:35:24 02/20/20 24 02/20/2024 CBC W/AUT O DIFFE RENTI AL hematocrit 39.8 % 34.0-4 6.0 normal Not Available [address] [place]abb[place] Bautista, [place], [address], 02/20/2024 11:35:24 02/20/20 24 02/20/2024 CBC W/AUT O DIFFE RENTI AL mean cell volume 91 fL 78.0-9 8.0 normal Not Available [place] [address], [place], [address], 02/20/2024 11:35:24 02/20/20 24 02/20/2024 CBC W/AUT O DIFFE RENTI AL mean cell HGB 30.0 pg 25.0-3 5.0 normal Not Available [address] [place]abb[place] Bautista, [place], [address], 02/20/2024 11:35:24 02/20/20 24 02/20/2024 CBC W/AUT O DIFFE RENTI AL mean cell HGB concentratio n 33.2 g/dL 31.0-3 6.0 normal Not Available [address] [place]abb[place] Bautista, [place], [address], 02/20/2024 11:35:24 02/20/20 24 02/20/2024 CBC W/AUT O DIFFE RENTI AL red cell distribution width 14.5 % 11.0-1 5.0 normal Not Available [address] [place]ista, [place], [address], 02/20/2024 11:35:24 02/20/20 24 02/20/2024 CBC W/AUT O DIFFE RENTI AL platelet count 174 10e3/ uL 150-40 0 normal Not Available [address] [place]abb[place] Bautista, [place], [address], 02/20/2024 11:35:24 02/20/20 24 02/20/2024 CBC W/AUT O DIFFE RENTI AL immature granulocyte % 1 0-1 normal Not Available [address] [place]abb[place]ista, [place], [address], 02/20/2024 11:35:24 02/20/20 24 02/20/2024 CBC W/AUT O DIFFE RENTI AL neutrophil % 62 % 35-75 normal Not Available [address] , [place], [address], 02/20/2024 11:35:24 02/20/20 24 02/20/2024 CBC W/AUT O DIFFE RENTI AL lymphocyte % 30 % 10-50 normal Not Available [address] [place]autista, [place], [address], 02/20/2024 11:35:24 02/20/20 24 02/20/2024 CBC W/AUT O DIFFE RENTI AL monocyte % 7 % 0-15 normal Not Available [address] [place]abb[place]autista, [place], [address], 02/20/2024 11:35:24 02/20/20 24 02/20/2024 CBC W/AUT O DIFFE RENTI AL eosinophil % 1 % 0-5 normal Not Available [address] [place]ista, [place], [address], 02/20/2024 11:35:24 02/20/20 24 02/20/2024 CBC W/AUT O DIFFE RENTI AL basophil % 0 % 0-5 normal Not Available [address] [place]abb[place]autista, [place], [address], 02/20/2024 11:35:24 02/20/20 24 02/20/2024 CBC W/AUT O DIFFE RENTI AL immature granulocyte # 0.03 x1000 /uL 0-0.05 normal Not Available [address] [place]abb[place] Bautista, [place], [address], 02/20/2024 11:35:24 02/20/20 24 02/20/2024 CBC W/AUT O DIFFE RENTI AL neutrophil # 3.87 x1000 /uL 1.50-8 .00 normal Not Available [address] [place]abb[place]autista, [place], [address], 02/20/2024 11:35:24 02/20/20 24 02/20/2024 CBC W/AUT O DIFFE RENTI AL lymphocyte # 1.84 x1000 /uL 1.20-5 .20 normal Not Available [address] [place]abb[place] Bautista, [place], [address], 02/20/2024 11:35:24 02/20/2002/20/2024 CBC W/AUT O DIFFE RENTI AL monocyte # 0.43 x1000 /uL 0.40-0 .90 normal Not Available [address] [place]ista, [place], [address], 02/20/2024 11:35:24 02/20/20 24 02/20/2024 CBC W/AUT O DIFFE RENTI AL eosinophil # 0.03 x1000 /uL 0.00-0 .50 normal Not Available [place] [address], [place], [address], 02/20/2024 11:35:24 02/20/20 24 02/20/2024 CBC W/AUT O DIFFE RENTI AL basophil # 0.02 x1000 /uL 0.00-0 .30 normal Not Available [address] [place]ista, [place], [address], 02/20/2024 11:35:24 02/20/20 24 02/20/2024 CBC W/AUT O DIFFE RENTI AL NRBC automated 0.0 /100_ WBC Not Available [address] [place]ista, [place], [address], 02/20/2024 11:35:24 10/18/02/20/2024 CBC W/AUT O DIFFE RENTI AL performing lab SEE NOTE ML - [facility] [address] [facility] [place] [address] Not Available [address] , [place], [address], 02/20/2024 11:35:24 02/20/2002/20/2024 SEDIM ENTAT ION RATE note SEE NOTE Order ing Provi jessica: Farhan padron MD Not Available [address] , [place], [address], 02/20/2024 13:11:47 02/20/2002/20/2024 SEDIM ENTAT ION RATE sedimentatio n rate 6 mm/HR 0-30 normal Not Available [address] , [place], [address], 02/20/2024 13:11:47 02/20/2002/20/2024 SEDIM ENTAT ION RATE performing lab SEE NOTE ML - [facility] [address] [place] [address] Not Available [address] , [place], [address], 02/20/2024 13:11:47 02/20/2002/20/2024 COMP METAB OLIC PANEL note SEE NOTE Order ing Provi jessica: Farhan padron MD Not Available [address] , [place], [address], 02/21/2024 06:14:35 02/20/2002/20/2024 COMP METAB OLIC PANEL sodium 140 mmol/ L 136-14 5 normal Not Available [address] , [place], [address], 02/21/2024 06:14:35 02/20/2002/20/2024 COMP METAB OLIC PANEL potassium 4.6 mmol/ L 3.5-5. 1 normal Not Available [address] [place]abbie [place]autista, [place], [address], 02/21/2024 06:14:35 02/20/2002/20/2024 COMP METAB OLIC PANEL chloride 102 mmol/ L 98-107 normal Not Available [address] [place], [place], [address], 02/21/2024 06:14:35 02/20/2002/20/2024 COMP METAB OLIC PANEL carbon dioxide 29 mmol/ L 24-33 normal Not Available [address] [place], [place], [address], 02/21/2024 06:14:35 02/20/2002/20/2024 COMP METAB OLIC PANEL anion gap 13.6 mmol/ L 10-20 normal Not Available [address] [place], [place], [address], 02/21/2024 06:14:35 02/20/2002/20/2024 COMP METAB OLIC PANEL glucose 108 mg/dL 70-99 high Not Available [address] [place]ista, [place], [address], 02/21/2024 06:14:35 02/20/2002/20/2024 COMP METAB OLIC PANEL blood urea nitrogen 11 mg/dL 7-18 normal Not Available [address] [place], [place], [address], 02/21/2024 06:14:35 02/20/2002/20/2024 COMP METAB OLIC PANEL creatinine 1.01 mg/dL 0.55-1 .02 normal Not Available [address] [place], [place], [address], 02/21/2024 06:14:35 02/20/20 24 02/20/2024 COMP METAB OLIC PANEL GFR (estimated) 63 mL/mi n >60 normal [IM CHANELLE NT]: The 2020 CKD-E PI equat ion is now the recom dandy d stand yolette. This versi on does not inclu de race, as do the 2008 and 2011 CKD-E PI creat inine and creat inine -cyst atin C equat ions. Pleas e note that the eGFR now repor giselle is gener ated by the new 2020 CKD-E PI equat ion, which decre ases the eGFR for black s by up to 10% and incre ases the eGFR for non-b lacks by up to 10% in kely rison to the old equat ion. To kely re a legac y eGFR to a curre nt value , a 2008 CKD-E PI calcu lator is easil y searc hable on the inter net. Calcu lated GFR: This calcu lated GFR is advoc ated by the Natio nal Kidne y Found ation to be used as an indic ator of Chron ic Kidne y Disea se (CKD) . 5 Stage s of Chron ic Kidne y Disea se. Stage 1 90 mL/mi n or more Healt hy kidne ys or Kidne y damag e with susan l or high GFR detai ls Stage 2 60 to 89 mL/mi n Kidne y damag e and mild decre ase in GFR detai ls Stage 3 30 to 59 mL/mi n Moder ate decre ase in GFR detai ls Stage 4 15 to 29 mL/mi n Sever e decre ase in GFR detai ls Stage 5 Less than 15 mL/mi n On dialy sis or Kidne y failu re Patie nt's clini suzie statu s must be consi dered for the care of your patie nt. Not Available [address] [place], [address], 02/21/2024 06:14:35 02/20/20 24 02/20/2024 COMP METAB OLIC PANEL BUN/creatini ne ratio 10 12-20 low Not Available [address] [place], [address], 02/21/2024 06:14:35 02/20/2002/20/2024 COMP METAB OLIC PANEL total protein 6.8 g/dL 6.4-8. 2 normal Not Available [address] , [place], [address], 02/21/2024 06:14:35 02/20/2002/20/2024 COMP METAB OLIC PANEL albumin 3.7 g/dL 3.4-5. 0 normal Not Available [address] , [place], [address], 02/21/2024 06:14:35 02/20/2002/20/2024 COMP METAB OLIC PANEL globulin 3.1 g/dL 1.5-4. 0 normal Not Available [address] , [place], [address], 02/21/2024 06:14:35 02/20/2002/20/2024 COMP METAB OLIC PANEL albumin/glob ulin ratio 1.2 0.5-2. 0 normal Not Available [address] Gabbie Bautista, [place], [address], 02/21/2024 06:14:35 02/20/2002/20/2024 COMP METAB OLIC PANEL calcium 9.2 mg/dL 8.5-10 .1 normal Not Available [address] , [place], [address], 02/21/2024 06:14:35 02/20/2002/20/2024 COMP METAB OLIC PANEL osmolality serum calculated 278 mOsm/ kg 272-28 8 normal Not Available [address] , [place], [address], 02/21/2024 06:14:35 02/20/2002/20/2024 COMP METAB OLIC PANEL bilirubin total 0.9 mg/dL 0.2-1. 0 normal Use of this assay is not recom dandy d for patie nts under going treat ment with Eltro mbopa g due to the poten tial for false ly eleva giselle resul ts. Not Available [address] , [place], [address], 02/21/2024 06:14:35 02/20/2002/20/2024 COMP METAB OLIC PANEL SGOT/AST 45 U/L 15-37 high Not Available [address] , [place], [address], 02/21/2024 06:14:35 02/20/2002/20/2024 COMP METAB OLIC PANEL SGPT/ALT 63 U/L 14-59 high Not Available [address] , [place], [address], 02/21/2024 06:14:35 02/20/20 24 02/20/2024 COMP METAB OLIC PANEL alkaline phosphatase total 126 U/L 46-116 high Not Available [address] , [place], [address], 02/21/2024 06:14:35 02/20/2002/20/2024 COMP METAB OLIC PANEL performing lab SEE NOTE - [facility] R [address] [facility] [address] Not Available [address] , [place], [address], 02/21/2024 06:14:35 02/20/2002/20/2024 LIPID PANEL note SEE NOTE Order ing Provi jessica: Farhan padron MD Not Available [address] , [place], [address], 02/21/2024 06:14:37 02/20/2002/20/2024 LIPID PANEL triglyceride s 98 mg/dL < 150 normal Natio nal Candice stero l Educa tion Progr am (NCEP ) Guide lines : Susan l < 150 mg/dL Borde rline 150 - 199 mg/dL High 200 - 499 mg/dL Very High >or= 500 mg/dL Not Available [address] , [place], [address], 02/21/2024 06:14:37 02/20/20 24 02/20/2024 LIPID PANEL cholesterol 161 mg/dL < 200 normal Natio nal Candice stero l Educa tion Progr am (NCEP ) Guide lines : Jessee able < 200 mg/dL Borde rline Risk 200 - 239 mg/dL High Risk >or= 240 mg/dL Not Available [address] [place], [address], 02/21/2024 06:14:37 02/20/20 24 02/20/2024 LIPID PANEL HDL cholesterol 59 mg/dL > 60 low Natio nal Candice stero l Educa tion Progr am Adult Treat ment Panel III (NCEP -ATP III) Guide lines : < 40 mg/dl : Low HDL-C holes terol >or= 60 mg/dl : High HDL-C holes terol Not Available [address] [place], [address], 02/21/2024 06:14:37 02/20/20 24 02/20/2024 LIPID PANEL LDL cholesterol 82 mg/dL < 100 normal Natio nal Candice stero l Educa tion Progr am (NCEP ) Guide lines : Optim al < 100 mg/dL Near/ Above Optim al 100 - 129 mg/dL Borde rline High 130 - 159 mg/dL High 160 - 189 mg/dL Very High >or= 190 mg/dL Not Available [address] [place], [address], 02/21/2024 06:14:37 1002/20/2024 LIPID PANEL performing lab SEE NOTE ML - [facility] R [address] [facility] [address] Not Available [address] , [place], [address], 02/21/2024 06:14:37 02/20/2002/20/2024 MAGNE SIUM note SEE NOTE Order ing Provi jessica: Farhan padron MD Not Available [address] , [place], [address], 02/21/2024 06:14:38 02/20/2002/20/2024 MAGNE SIUM magnesium 2.0 mg/dL 1.8-2. 4 normal Not Available [address] , [place], [address], 02/21/2024 06:14:38 02/20/2002/20/2024 MAGNE SIUM performing lab SEE NOTE ML - [facility] [address] [facility] [address] Not Available [address] , [place], [address], 02/21/2024 06:14:38 02/20/2002/20/2024 VITAM IN B12 note See Note Order ing Provi jessica: Farhan padron MD Not Available [address] , [place], [address], 02/21/2024 06:14:39 02/20/20 24 02/20/2024 VITAM IN B12 vitamin B12 485 pg/mL 232-12 45 Perfo rmed At: CB, [facility] [address] [place], [address] [facility] arelis cox, PhD, Phone : [phone] Not Available [address] , [place], [address], 02/21/2024 06:14:39 02/20/2002/20/2024 VITAM IN B12 performing lab see note LC2 - LABCO RP CLIEN T# [id number] [id number] [address] [place] [address] Not Available [address] , [place], [address], 02/21/2024 06:14:39 02/20/2002/20/2024 FOLIC ACID note See Note Order ing Provi jessica: Farhan padron MD Not Available [address] , [place], [address], 02/21/2024 06:14:39 02/20/2002/20/2024 FOLIC ACID folic acid 11.6 NG/mL >3.0 . A serum folat e rika ntrat ion of less than 3.1 ng/mL is consi dered to repre sent clini suzie defic iency . Not Available [address] , [place], [address], 02/21/2024 06:14:39 02/20/2002/20/2024 FOLIC ACID performing lab see note LC2 - LAB[facility] RP CLIEN T# [id number] [id number] [address] [place] [address] Not Available [address] , [place], [address], 02/21/2024 06:14:39 02/20/2002/20/2024 THYRO ID PANEL W/TSH note See Note Order ing Provi jessica: Farhan padron MD Not Available [address] , [place], [address], 02/21/2024 06:14:40 02/20/2002/20/2024 THYRO ID PANEL W/TSH T4 free 1.15 NG/dL 0.76-1 .46 normal This test may be affec giselle by high level s of bioti n, found in some presc ripti on and over- the-c ounte r suppl ement s. [place], patie nts shoul d disco ntinu e bioti n 3 days befor e testi ng. Resul ts obtai hamlet after recen t bioti n inges tion shoul d be inter prete d with cauti on. Not Available [address] , [place], [address], 02/21/2024 06:14:40 02/20/2002/20/2024 THYRO ID PANEL W/TSH thyroid stimulating hormone 2.48 uIU/m L 0.36-3 .74 normal This test may be affec giselle by high level s of bioti n, found in some presc ripti on and over- the-c ounte r suppl ement s. [place], patie nts shoul d disco ntinu e bioti n 3 days befor e testi ng. Resul ts obtai hamlet after recen t bioti n inges tion shoul d be inter prete d with cauti on. Not Available [address] , [place], [address], 02/21/2024 06:14:40 02/20/2002/20/2024 THYRO ID PANEL W/TSH performing lab see note - [address] [address] Not Available [address] , [place], [address], 02/21/2024 06:14:40 02/20/2002/20/2024 C-ARMANI CTIVE PROTE IN note See Note Order ing Provi jessica: Farhan padron MD Not Available [address] , [place], [address], 02/21/2024 06:14:41 02/20/2002/20/2024 C-ARMANI CTIVE PROTE IN C-reactive protein 8.6 mg/L <5.0 high NOT E NEW REFER ENCE RANGE S Not Available [address] , [place], [address], 02/21/2024 06:14:41 02/20/20 24 02/20/2024 C-ARMANI CTIVE PROTE IN performing lab see note ML - [facility] [address] [facility] [address] Not Available [address] , [place], [address], 02/21/2024 06:14:41 02/20/2002/20/2024 NT-OR OBNP note See Note Order ing Provi jessica: Farhan padron MD Not Available [address] , [place], [address], 02/21/2024 08:18:20 02/20/2002/20/2024 NT-OR OBNP nt-probnp 200 pg/mL 0-287 . The antoinetteo wing cut-p oints have been sugge sted for the use of proBN P for the diagn ostic evalu ation of heart failu re (HF) in patie nts with acute dyspn ea: . Modal ity Age Optim al Cut (year s) Point ----- ----- ----- ----- ----- ----- ----- ----- ----- ----- ---- Diagn osis (rule in HF) <50 450 pg/mL 50 - 75 900 pg/mL >75 1800 pg/mL Exclu idalmis (rule out HF) Age indep enden t 300 pg/mL Perfo rmed At: CB, [facility] Dub n [address] [facility], [place], [address] Segundo cox, PhD, Phone : [phone] Not Available [address] , [place], [address], 02/21/2024 08:18:20 02/20/2002/20/2024 NT-OR OBNP performing lab see note LC2 - LAB[facility] RP CABRERA T# [id number] [id number] [place] [address] Not Available [address] , [place], [address], 02/21/2024 08:18:20 02/20/20 24 02/20/2024 VITAM IN D 25-HY DROXY note SEE NOTE Order ing Provi jessica: Farhan padron MD Not Available [address] , [place], [address], 02/21/2024 08:18:21 02/20/2002/20/2024 VITAM IN D 25-HY DROXY vitamin D 25-hydroxy 21.8 NG/mL 30.0-1 00.0 low Vitam in D defic iency has been defin ed by the Insti tute of Medic ine and an Endoc rine Socie ty pract ice guide line as a level of serum 25-OH vitam in D less than 20 ng/mL (1,2) . The Endoc rine Socie ty went on to [facility] er defin e vitam in D insuf ficie ncy as a level betwe en 21 and 29 ng/mL (2). 1. IOM (Inst itute of Medic ine). 2010. Dieta ry refer ence intak es for calci um and D. Natalya pacheco DC: The [facility] Press . 2. Ambreen becker MF, Lin jackson [place], Sonia off-F eduar i HAN, et al. Evalu ation , treat ment, and preve ntion of vitam in D defic iency : an Endoc rine Socie ty clini suzie pract ice guide line. JCEM. 2010; 96(7) :1911 -30. Perfo rmed At: CB, [facility] [address] [place], [address] Segundo arelis cox, PhD, Phone : [phone] Not Available [address] [place], [address], 02/21/2024 08:18:21 02/20/20 24 02/20/2024 VITAM IN D 25-HY DROXY performing lab SEE NOTE LC2 - LAB[facility] RP CLIEN T# [id number] [id number] [place] [address] Not Available [address] [place], [address], 02/21/2024 08:18:21 03/20/20 23 elect rocar diogr am No observ ation record ed. JEREMÍAS Vega [address], [place], [address], 03/20/2023 14:47:22 03/21/20 23 03/20/2023 elect rocar diogr am No observ ation record ed. JEREMÍAS Vega [address], [place], [address], 03/21/2023 15:22:37 04/01/20 23 elect rocar diogr am No observ ation record ed. [email or web address] Not Available 2022 07:59:20 11/17/19 24 elect rocar diogr am No observ ation record ed. JEREMÍAS Vega [address], [place], [address], 11/17/2023 10:22:18 11/17/19 24 11/17/2023 elect rocar diogr am No observ ation record ed. 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 The restin g heart rate was 92 bpm and marina to a maximu m heart rate of 137 bpm which repres ents 87% of the sapna l age-pr edicte d heart rate. Restin g blood pressu re 148/90 mmHg and marina to a maximu m blood pressu re of 138/98 mmHg. Restin g EKG shows normal sinus rhythm with no ST or T wave change s. With exerci se patien t had less than [address] segmen t depres idalmis. No arrhyt hmia. Heart rate and blood pressu re respon se approp riate. Marked reduct ion in functi onal capaci ty. Bentley treadm ill score +1.5 which is interm ediate risk. Overal l this is a normal exerci se EKG. Myovie w images obtain ed were obtain ed both at stress and rest. The stress and rest Myovie w images show unifor m myocar dial activi ty. The gated images show hyperd ynamic left ventri cular systol ic functi on with an ejecti on fracti on of 90%. 1. Normal exerci se EKG. 2. Marked reduct ion in functi onal capaci ty. 3. Interm ediate risk Bentley treadm ill score second anthony to functi onal capaci ty. 4. Normal myocar dial perfus ion on Myovie w imagin g. 5. Hyperd ynamic left ventri cular systol ic functi on. Electr onical ly Signed by FARHAN RICHMOND MD on 2023 at 1511 Report ed and signed by: FARHAN RICHMOND MD CC: Hilary willard MANAGER COPY; Farhan Richmond MD Dictat ed Date/T melody: 2023 (151) Techno logist : [employer], BS, [employer] Transc ribed Date/T melody: 2023 (1511) Transc riptio nist: DR.LOH GEORGIA anayaic Signat ure Date/T melody: 2023 (1510) Printe d Date/T melody: 2023 (1515) BATCH NO: N/A PAGE 1 Signed Report CC'ed Logic: Orderi ng Provid er: TOÑO REAL Attend ing Provid er: TOÑO REAL Referr ing Provid er: TOÑO REAL Consul ting Provid er: DINORAH WILLARD MANAGER COPY HILARY kaplan [address] , [place], [address], 12/04/2023 16:25:19 12/05/19 24 12/05/2023 - ECHO w/spe c/col or flow [facility] Name: ENOC LAZO [address] Phys: Toño BALDERRAMA, [place] [address] : 1960 Age: 63 Sex: F Acct: [id number] Loc: G.NM PHONE #: Exam Date: 2023 Status : DEP CLI FAX #: [phone] Rad# [id number] Unit# [id number] Admit Date: 2023 EXAMS: CPT CODE: [id number] ECHO W/SPEC /COLOR FLOW 80466 Reason for study: Chest pain/d yspnea Left ventri cular diasto le: 5.5 Left ventri cular systol e: 3.9 Septal wall thickn ess: 1.0 Electrical Power Station Technician ior wall thickn ess: 1.4 Right ventri cular diasto le: 1.0 Left Atrium : 3.7 Aortic root: 3.4 TR veloci ty: 2.63 m/s Impres idalmis: 1. Normal left ventri cular chambe r size with hyperd ynamic left ventri cular systol ic functi on. Estima giselle ejecti on fracti on is 70-75% . There is mild concen tric hypert rophy of the left ventri jaymie. There is Dopple r eviden ce for impair ed relaxa tion of the left ventri jaymie 2. No segmen viola wall motion abnorm alitie s 3. Normal left atrial and right atrial size 4. Normal right ventri cular size and functi on 5. Normal mitral valve, with no mitral insuff icienc y 6. Mild calcif icatio n and thicke merle of the aortic valve leafle ts with normal aortic valve leafle t mobili ty and functi on. There is no aortic insuff icienc y 7. No perica rdial effusi on 8. Normal aortic root 9. Normal tricus pid valve, with tricus pid regurg itant jet veloci ty of 2.63 m/s implyi ng a right ventri cular systol ic pressu re of approx imatel y 38 mmHg Electr onical ly Signed by FARHNA RICHMOND MD on 2023 at 0841 Report ed and signed by: FARHAN RICHMOND MD PAGE 1 Signed Report (NAS NUED) [facility] Name: MELVIN FLORES,STUBBS S [address] Phys: Toño BALDERRAMA, Farhan [place] [address] : 1960 Age: 63 Sex: F Acct: [id number] Loc: MARY PHONE #: Exam Date: 2023 Status : DEP CLI FAX #: Rad# [id number] Unit# [id number] Admit Date: 2023 EXAMS: CPT CODE: [id number] ECHO W/SPEC /COLOR FLOW 63902 CC: Hilary Singh ce MANAGER COPY; Farhan Richmond MD Dictat ed Date/T melody: 2023 (08) Techno logist : PAULET TA W ZEV Transc ribed Date/T melody: 2023 (41) Transc riptio nist: DR.LOH GEORGIA Ordonez onic Signat ure Date/T melody: 2023 (41) Printe d Date/T melody: 2023 (45) BATCH NO: N/A PAGE 2 Signed Report CC'ed Logic: Orderi ng Provid er: TOÑO REAL Attend ing Provid er: TOÑO REAL Referr ing Provid er: TOÑO REAL Consul ting Provid er: DINORAH WILLARD MANAGER COPY [address] , [place], [address], 12/05/2023 08:57:18 06/11/19 25 06/11/2024 US, liver [facility] Medica l Ce Name: ENOC LAZO [address] Phys: Toño BALDERRAMA, [place] [address] : 1960 Age: 63 Sex: F Acct: [id number] Loc: G.US PHONE #: [phone] Exam Date: 2024 Status : REG CLI FAX #: Rad# [id number] Unit# [id number] Admit Date: 2024 EXAMS: CPT CODE: [id number] US LIVER 03799 Histor y: INCREA SED LIVER FUNCTI ON Techni que: Routin e abdomi nal ultras ound Compar moo: None Interp retati on: Pancre as: Not well visual ized. Liver: Increa sed echoge nicity , compat ible with fatty infilt ration . Main portal vein patent with normal direct ional flow. Gallbl adder: Unrema rkable withou t shadow ing stones or wall thicke merle. Biliar y tree: No biliar y ductal dilata tion. Common bile duct measur es 6 mm. Right kidney : 9.9 cm in pole-t o-pole length .No hydron ephros is or mass. Impres idalmis: Fatty infilt ration of the liver. Electr onical ly Signed by: Mamie Palma MD Electr onical ly Signed by MAMIE PALMA on 2024 at 1212 Report ed and signed by: MAMIE PALMA CC: Hilary willard APRN; Farhan Richmond MD Dictat ed Date/T melody: 2024 (1212) Techno logist : LINDSA Y MORGAN Transc ribed Date/T melody: 2024 (1212) Transc riptio nist: MFR Electr onic Signat ure Date/T melody: 2024 (1212) Printe d Date/T melody: 2024 (1216) BATCH NO: N/A PAGE 1 Signed Report CC'ed Logic: Orderi ng Provid er: TOÑO REAL Attend ing Provid er: TOÑO REAL Referr ing Provid er: TOÑO REAL Consul ting Provid er: DINORAH WILLARD APRN HILARY [email or web address], [place], [address], 06/11/2024 13:01:27 Result Notes None recorded. Problems Name Problem SNOMED Code Status Onset Date Resolution Date Notes Provider Name and Address Organization Details Recorded Time Increased liver function 07732248 Active 2023 Farhan Richmond MD [address] [place] [address],[facility] e [facility], [place], [address] , [facility] & [place] 4 10:39:52 Dyspnea 042835268 Active 2017 Dyspnea Not Available [facility] 2 23:33:28 Heart failure with normal ejection fraction 519688940 Active 2020 Heart failure with preserved ejection fraction Not Available [facility] 2 23:33:28 Family history of coronary arteriosc lerosis 666784174 Active Family history of coronary artery disease Not Available [facility] 2 23:33:28 Coronary arteriosc lerosis 40860367 Active 2020 Coronary artery disease Not Available [facility] 2 23:33:28 Abnormal results of cardiovas cular function studies 908490675 Active 2020 Abnormal results of cardiovasc ular function studies Not Available [facility] 2 23:33:28 Gastroeso phageal reflux disease 379473857 Active 2014 Gastroeso phageal reflux disease Not Available [facility] 2 23:33:28 Obesity 843292704 Active 2014 Not Available [facility] 2 23:33:28 Hypertens viky disorder 37109237 Active 2014 Not Available [facility] 2 23:33:29 Angina decubitus 50817681 Active 2020 Angina at rest Not Available [facility] 2 23:33:29 Hypertens viky heart disease without congestiv e heart failure 44540945 Active 2017 Hypertensi ve heart disease without congestive heart failure Not Available [facility] 2 23:33:29 Essential hypertens ion 03391955 Active 2020 Essential hypertensi on Essenti al hypertensi on Not Available [facility] 2 23:33:29 Palpitati ons 80975906 Active 2014 Not Available [facility] 2 23:33:29 Mitral valve regurgita tion 52555506 Active 2014 Mitral regurgitat ion Not Available [facility] 2 23:33:29 Hypothyro idism 59084018 Active 2013 Not Available [facility] 2 23:33:29 Hyperlipi demia 24309466 Active 2020 Hyperlipid aemia Hype rlipidemia Not Available [facility] 2 23:33:29 Heart murmur 49925655 Active 2022 Farhan Richmond MD [address] [place] [address],[address] [place], [address] , [place] - [place] - [place] & [place] 3 10:20:18 Diastolic dysfuncti on 6326777 Active 2022 Farhan Richmond MD [facility] [email or web address], [place], [address] , [place] & [place] 3 08:55:08 Coronary atheroscl erosis 702346415 Active 2022 Bryce Root NP [facility] [email or web address], [place], [address] , [place] & [place] 3 15:11:08 History of total hysterect dread 183803084 Active 2021 Barbara marte, [place] - [place] - [place] & [place] 4 10:20:40 History of supracerv ical hysterect dread 025940233 Active 2016 Barbara Coleman null, [place] - [place] & [place] 4 10:20:40 Prediabet es 031467303 Active 2020 Barbara Coleman null, [place] - [place] & [place] 4 10:20:40 Tight chest 46991922 Active 2023 Farhan Richmond MD [facility] [email or web address], [place], [address] , [place] & [place] 4 10:40:54 Dyspnea on exertion 92663423 Active 2023 Farhan Richmond MD [facility] [email or web address], [place], [address] , [place] & [place] 4 10:41:08 Edema 911407002 Active 2023 Farhan Richmond MD [facility] [email or web address], [place], [address] , [place] & [place] 4 10:41:14 Electroca rdiogram abnormal 150840711 Active 2023 Farhan Richmond MD [address] [place] [address],[address], [place], [address] , [place] - LP[facility] - [place] & [place] 4 15:35:20 Fatigue 80317498 Active 2023 Farhan Richmond MD [address] [place] [address],[address], [place], [address] , [place] - [facility] & [place] 4 09:37:42 Problem Notes None recorded. Procedures Surgical History Date Name Laterality Status Provider Name and Address Organization Details Recorded Time 03/27/20 Cardiac Catheterization [facility] [place] [facility] [place] 09/18/2022 11:50:42 Hysterectomy completed Bakari Wong [place] - [facility] & [place] 06/21/2022 10:43:11 Imaging Results Imaging Date Name Status LastModified by Organization Details LastModified Time 03/20/2023 electrocardiogram completed [address], [place], [address], 03/20/2023 14:47:22 03/20/2023 electrocardiogram completed [address], [place], [address], 03/21/2023 15:22:37 04/01/2023 electrocardiogram completed [email or web address] Informa tion not available 04/02/2023 07:59:20 11/17/2023 electrocardiogram completed [address], [place], [address], 11/17/2023 10:22:18 11/17/2023 electrocardiogram completed [address], [place], [address], 11/17/2023 13:18:20 12/04/2023 - myocard SPECT wm/ef log rider completed [email or web address] [address] , [place], [address], 12/04/2023 16:25:19 12/05/2023 - ECHO w/spec/color flow completed [email or web address] [address] , [place], [address], 12/05/2023 08:57:18 06/11/2024 US, liver completed [email or web address] [address] , [place], [address], 06/11/2024 13:01:27 Procedure Notes None recorded. Medical Equipment None Reported. Allergies Allergen ID Allergen Name Allergen Category Reaction Reaction Severity Criticality Documentation Date Start Date Code Code System Note Provider Name and Address Organization Details Recorded Time 691868 Product containin g penicilli n (product) medicatio n vomiting Not available Not available 11/17/20232007 92415 8001 SNOMED Barbara marte, JOHNN[place] - [facility] & [place] 4 10:19:44 2148 Penicilli n Not available Not available Not available Not available 01/09/2022 69862 RxNorm React ion: Unkno wn, sever ity: Unkno wn Not Available [facility] 2 22:21:55 17730 Substance with sulfonami de structure and antibacte rial mechanism of action (substanc e) medicatio n vomiting Not available Not available 06/21/20222007 70028 8003 SNOMED JOHNNY Abbasi - [facility] & [place] 4 10:19:45 Medications Name Sig Start Date Stop Date Status Note LastModified by Organization Details LastModified Time losartan 50 mg tablet Take 1 tablet by mouth once daily 2024 active Not Available Not Available Not Avai lable celecoxib 200 mg capsule 09/19 completed Not Available Not Available Not Available furosemid e 40 mg tablet TAKE 1 TABLET BY MOUTH ONCE DAILY active Not Available Not Available No t Available methocarb tara 500 mg tablet TAKE 1 TABLET BY MOUTH AT BEDTIME 03/20 completed Not Available Not Available Not Available atorvasta tin 80 mg tablet Take 0.5 tablet by mouth once daily 04/16 completed Not Available Not Available Not Available doxycycli ne hyclate 100 mg capsule active Not Available Not Available Not Available atorvasta tin 20 mg tablet Take 1 tablet every day by oral route. active Not Available Not Available No t Available fluconazo le 150 mg tablet TAKE 1 TABLET BY MOUTH EVERY OTHER DAY FOR 6 DAYS 03/20 completed Not Available Not Available Not Available metoprolo l succinate ER 50 mg tablet,ex tended release 24 hr TAKE 1 TABLET BY MOUTH ONCE DAILY 03/20 completed Not Available Not Available Not Available meloxicam 15 mg tablet TAKE 1 TABLET BY MOUTH ONCE DAILY 03/20 completed Not Available Not Available Not Available Cardizem CD 180 mg capsule,e xtended release 1 capsule Orally Once a day for 30 day(s) active Not Available Not Available No t Available omeprazol e 40 mg capsule,d elayed release TAKE 1 CAPSULE BY MOUTH ONCE DAILY active Not Available Not Available No t Available spironola ctone 25 mg tablet TAKE 1 TABLET BY MOUTH ONCE DAILY 02/19 completed Patient states it gave her hot flashes so she stopped it. Not Available Not Available Not Available levothyro xine 25 mcg tablet TAKE 1 TABLET BY MOUTH ONCE DAILY active Not Available Not Available No t Available clotrimaz ole-betam ethasone 1 %-0.05 % topical cream 09/19 completed Not Available Not Available Not Available aspirin 81 mg chewable tablet 1 tablet Orally Once a day active Not Available Not Available No t Available furosemid e 20 mg tablet Take 1 tablet by mouth once daily 12/18 completed Not Available Not Available Not Available ergocalci ferol (vitamin D2) 1,250 mcg (50,000 unit) capsule TAKE 1 CAPSULE BY MOUTH TWICE A WEEK 02/22 completed Not Available Not Available Not Available fluticaso ne propionat e 50 mcg/actua tion nasal spray,medardo pension active Not Available Not Available Not Available ketamine (bulk) 100 % powder 03/20 completed Not Available Not Available Not Available bupropion HCl XL 150 mg 24 hr tablet, extended release TAKE 1 TABLET BY MOUTH EVERY 24 HOURS 03/20 completed Not Available Not Available Not Available duloxetin e 30 mg capsule,d elayed release TAKE 1 CAPSULE BY MOUTH ONCE DAILY 03/20 completed Not Available Not Available Not Available cholecalc iferol (vitamin D3) 1,250 mcg (50,000 unit) capsule Take 1 capsule every week by oral route for 84 days. 2023 active Not Available Not Available Not Avai lable nebivolol 2.5 mg tablet Take 1 tablet every day by oral route as directed . 06/21 completed Not Available Not Available Not Available nebivolol 5 mg tablet TAKE 1 TABLET BY MOUTH ONCE DAILY active Not Available Not Available No t Available sodium,po tassium,m ag sulfates 17.5 gram-3.13 gram-1.6 gram oral soln TAKE 6 OUNCES TWICE DAILY BY MOUTH DIRECTED FOR 1 DAY, FOR COLONOSC OPY PREP active Not Available Not Available No t Available baclofen 5 mg tablet TAKE 1 TABLET BY MOUTH TWICE DAILY active Not Available Not Available No t Available Vitals Date Recorded Body height Body mass index (BMI) Body weight Oxygen saturation Oxygen saturation in Arterial blood by Pulse oximetry Heart rate Systolic blood pressure Diastolic blood pressure Systolic blood pressure Diastolic blood pressure Provider Name and Address Organization Details Last Updated DateTime 3 167.64 cm 40.2 kg/m2 708805. 5 g 94 % 94 % 91 /min 110 mm[Hg] 80 mm[Hg] 120 mm[Hg] 80 mm[Hg] Tere Kim [place] - LPNT [facility] [place] 3 14:39:15 Date Recorded Body height Body mass index (BMI) Body weight Oxygen saturation Oxygen saturation in Arterial blood by Pulse oximetry Heart rate Systolic blood pressure Diastolic blood pressure Provider Name and Address Organization Details Last Updated DateTime 4 167.64 cm 42.1 kg/m2 240333. 61 g 96 % 96 % 93 /min 138 mm[Hg] 92 mm[Hg] Barbara padron [place] - LPNT [facility] [place] 4 10:26:22 Date Recorded Body height Body mass index (BMI) Body weight Oxygen saturation Oxygen saturation in Arterial blood by Pulse oximetry Heart rate Systolic blood pressure Diastolic blood pressure Provider Name and Address Organization Details Last Updated DateTime 4 167.64 cm 42.3 kg/m2 066621. 2 g 93 % 93 % 96 /min 124 mm[Hg] 90 mm[Hg] [facility] [place] 4 09:08:10 Date Recorded Body height Body mass index (BMI) Body weight Oxygen saturation Oxygen saturation in Arterial blood by Pulse oximetry Heart rate Systolic blood pressure Diastolic blood pressure Provider Name and Address Organization Details Last Updated DateTime 4 167.64 cm 42.8 kg/m2 639080. 98 g 97 % 97 % 87 /min 144 mm[Hg] 92 mm[Hg] Barbara Link [facility] [facility] [place] 4 10:04:39 Date Recorded Body height Body mass index (BMI) Body weight Oxygen saturation Oxygen saturation in Arterial blood by Pulse oximetry Heart rate Systolic blood pressure Diastolic blood pressure Provider Name and Address Organization Details Last Updated DateTime 4 167.64 cm 42.3 kg/m2 539935. 2 g 95 % 95 % 89 /min 118 mm[Hg] 86 mm[Hg] Barbara Link [place] - LPNT [facility] [place] 4 10:32:06 Social History None recorded. Functional Status None recorded. Mental Status None recorded. Family History Relationship Description Onset Age of this Age Resolved Age Notes LastModified by Organization Details LastModified Time Father Cerebrovascu lar accident [email or web address] Not available 10:43:32 Medical History Condition Response Hyperlipidemia Y GERD/Reflux Y Hypertension Y Gynecological HistoryNo gynecological history recorded. Obstetrics History GPAL:G 0 P 0 0 0 0 Past Encounters Encounter ID Performer Location Encounter Start Date Encounter Closed Date Diagnosis/Indication Diagnosis SNOMED-CT Code Diagnosis ICD10 Code Diagnosis Note [id number] Farhan Richmond MD [address] AG [address] [place] [id number] 6 06/21/2022 09:56:15 06/21/2022 10:18:11 Heart murmur 46603867 R01.1 Dyspnea 391834075 R06.02 Coronary arteriosclerosis 57325185 I25.9 Essential hypertension 92230628 I10 Hypertensive disorder 38 655532 I10 [id number] Farhan Richmond MD [address] AG [address] [place], [place] [id number] 09/19/2022 11:23:14 09/19/2022 11:35:44 Coronary arteriosclerosis 91172001 I25.9 Essential hypertension 28145770 I10 Hyperlipidemia 04952317 E78.5 Diastolic dysfunction 35 46445 I51.9 Mitral fuentes ve regurgitation 19981738 I34.0 Palpitations 06659142 R0 0.2 [id number] Bryce Root NP [address] AG [address] [place], [place] [id number] 03/20/2023 14:22:02 03/20/2023 15:10:40 Coronary arteriosclerosis 52850087 I25.9 Essential hypertension 44979545 I10 Hyperlipidemia 55304558 E78.5 Diastolic dysfunction 35 33030 I51.9 Mitral fuentes ve regurgitation 84161081 I34.0 Coronary atherosclerosis 569716130 I25.10 [id number] Farhan Richmond MD [address] AG [address] [place] [address] 6 11/17/2023 09:52:31 11/17/2023 10:43:46 Essential hypertension 30494997 I10 Tight chest 48199503 R07 .89 Coronary arteriosclerosis 67479224 I25.9 Dyspnea on exertion 6084 5006 R06.09 Edema 779468347 R60.9 Electrocar diogram abnormal 146105343 R94.31 Diastolic dysfunction 35 61044 I51.9 [id number] Farhan Richmond MD [address] AG [address] [place] [id number] 6 12/19/2023 08:54:58 12/19/2023 09:39:07 Essential hypertension 14258971 I10 Coronary arteriosclerosis 22337160 I25.9 Dyspnea on exertion 6084 5006 R06.09 Edema 914535301 R60.9 Electrocar diogram abnormal 006746875 R94.31 Diastolic dysfunction 35 98065 I51.9 Fatigue 73732788 R53.83 Gastroesop hageal reflux disease without esophagitis 025429046 K21.9 [id number] Farhan Richmond MD [address] AG [address] [place] [id number] 6 02/20/2024 09:54:30 02/20/2024 10:17:16 Essential hypertension 67292507 I10 Coronary arteriosclerosis 76942549 I25.9 Dyspnea on exertion 6084 5006 R06.09 Edema 299721315 R60.9 Electrocar diogram abnormal 637386516 R94.31 Diastolic dysfunction 35 46641 I51.9 Fatigue 49265914 R53.83 Gastroesop hageal reflux disease without esophagitis 175938499 K21.9 [id number] Farhan Richmond MD [address] [place] [address] 04/16/2024 09:56:26 04/16/2024 10:42:25 Essential hypertension 63062028 I10 Coronary arteriosclerosis 45630423 I25.9 Dyspnea on exertion 6084 5006 R06.09 Edema 121874355 R60.9 Electrocar diogram abnormal 141675466 R94.31 Diastolic dysfunction 35 40428 I51.9 Fatigue 03956725 R53.83 Gastroesop hageal reflux disease without esophagitis 193211272 K21.9 Increased liver function 16032316 R94.5 Hyperlipidemia 26874613 E78.5 Health Concerns Section Related Observation LastModified by Organization Detai ls LastModified Time None Recorded Concern Status LastModified by Organization Details LastModified Time None Recorded Advance Directives Directive None Recorded Payers Encounter Date Sequence Insurance Name Policy Number Policy Mcnally Covered Member ID Mcnally Member ID Guarantor Name 03/20/2023 [place] [id number] 1 Anya S Efrain [id number] Anya S Efrain 11/17/2023 1 [place] [id number] 1 Anya S Efrain [id number] Anya S [place] 12/19/2023 1 [place] [id number] 1 Anya S Efrain [id number] Anya S [place] 02/20/2024 1 [place] [id number] 1 Anya Zuniga [id number] Anya Zuniga 04/16/2024 1 [place] [id number] 1 Anya Zuniga [id number] Anya Zuniga Notes Date Note Type Note Provider Name and Address Organization Details Recorded Time 03/20/2023 text/html 6 mo f/u, no new concerns or problems Bryce Root NP [address] [place] [address],[address], [place], [address], [facility] & [place] 03/20/2023 15:47:37 11/17/2023 text/html palpitations hav e improved, but now she has had increasing shortness of breath and edema. Some chest pressure associated with this with radiation to the left arm and jaw pain. Pressure and tight. 4/10 in intensity. Occurs with rest and exertion. No nitroglycerin use. Radiation to the left shoulder and left jaw. No nausea or diaphoresis. Lasts a couple of minutes and resolves on its own. Also with intermittent edema. Farhan Richmond MD [address] [place] [address],[address], [place], [address], [facility] [place] 11/20/2023 15:35:42 12/19/2023 text/html patient is here to go over test results. Overall feels well. No chest pain pressure or tightness. Does have shortness breath and does have edema. No chest pain pressure and no orthopnea or PND. She does have fatigue. She has sleep apnea but can not wear a CPAP Farhan Richmond MD [address] [place] [address],[address], [place], [address], [facility] [place] 12/19/2023 12:44:14 02/20/2024 text/html Still with simil ar complaints. Could not tolerate the Aldactone. Could not tolerate the higher dose of Lasix. She still complains of edema. Has shortness of breath and fatigue. She did not get the blood work done Farhan Richmond MD [address], [place], [address], [facility] [place] 02/21/2024 09:01:59 04/16/2024 text/html Patient has been doing well. Still has fatigue. He has had some dizziness and lightheadedness but has sinus issues. Here today to go over blood work in for further evaluation. No chest pain pressure or tightness. She does get some sharp shooting pains. No shortness of breath. No orthopnea or PND Farhan Richmond MD [address], [place], [address], [facility] & [place] 04/16/2024 10:44:37 OBGyn Episode No OBEpisode recorded.
--- OUTSIDE RECORDS SUMMARY | 2024-08-12 19:47 | XMS_ITS | Continuity of Care Document ---
Author Organization [facility] Phone Care Team Providers Care Sanitation Worker Name Role Phone ALEXANDRIA POOL Primary Care CASE, SHYANNE Argueta Surgeon CASE, SHYANNE Argueta Admitting CASE, SHYANNE Argueta Primary Attending ALLERGIES AND ADVERSE REACTIONS ALLERGIES AND ADVERSE REACTIONS Code System Allergy Substance Adverse Reaction Date Reaction (Severity) Comment Status Reported By Updated [place] [id number] SNOMED CT Penicillins Drug-induce d nausea and vomiting active [id number] on July 02, 2024 2:27:02 PM [facility] 265304825 SNOMED CT Sulfa Antibiotics Rash active [id number] on July 02, 2024 2:27:12 PM [facility] FAMILY HISTORY RELATION: Father Status: Cause of : Unknown Age at : Unknown SNOMED-CT Diagnosis Age At Onset 42439531 Heart disease RELATION: Mother Status: LIVING SNOMED-CT Diagnosis Age At Onset Information not available MEDICATIONS HOME MEDICATIONS Status RXNORM [facility] Medication Dose Route Frequency Dates Comments Reported By Updated By Active 67348 54718 1 Aspirin 81 Oral Tablet Delayed Release 81 MG 1.0 TAB ORAL DAILY Last Dose: 2024 2:00:00 AM [facility] PATIENT [id number] on July 02, 2024 2:27:37 PM [facility] Active 634803 41889 74029 0 Atorvastatin Calcium Oral Tablet 20 MG 1.0 TAB ORAL DAILY Last Dose: 2024 2:00:00 AM [facility] PATIENT [id number] on July 02, 2024 2:27:45 PM [facility] Active 53857 98824 1 Vitamin D3 Oral Capsule 1.25 MG (44630 UT) 1.0 CAP ORAL QWEEK Last Dose: 2024 2:00:00 PM [facility] PATIENT [id number] on July 02, 2024 2:28:54 PM [facility] Active 024433 25675 28714 5 Furosemide Oral Tablet 40 MG 0.5 TAB ORAL DAILY Last Dose: uar 2024 2:00:00 PM [facility] PATIENT [id number] on July 02, 2024 2:27:58 PM [facility] Active 717373 39507 37516 1 Levothyroxin e Sodium Oral Tablet 25 MCG 1.0 TAB ORAL DAILY Last Dose: uar 2024 2:00:00 PM [facility] PATIENT [id number] on July 02, 2024 2:28:09 PM [facility] Active 469451 07536 19765 0 Losartan Potassium Oral Tablet 50 MG 1.0 TAB ORAL DAILY Last Dose: uar 2024 2:00:00 PM [facility] PATIENT [id number] on July 02, 2024 2:29:25 PM [facility] Active 398987 80126 12542 0 Nebivolol HCl Oral Tablet 5 MG 1.0 TAB ORAL DAILY Last Dose: uar 2024 2:00:00 AM [facility] PATIENT [id number] on July 02, 2024 2:28:30 PM [facility] Active 407521 36085 02778 0 Omeprazole Oral Capsule Delayed Release 40 MG 1.0 CAP ORAL DAILY Last Dose: 2024 2:00:00 AM [facility] PATIENT [id number] on July 02, 2024 2:28:40 PM [facility] DISCHARGE MEDICATIONS Status RXNORM [facility] Medication Dose Route Frequency Dates Comments Physician Updated By No Discharge Medication Info rmation Available [facility]PATIENT MEDICATIONS [facility] Medication Dose Route Frequency Rat e Quantity Dates Comments Physician Updated By Raoul inued 371066 5694 8011 704 LACTATED RINGERS SOLN 1000. 0 ML INTRAV ENOUS ONE TIME ADMINISTRA TION (UNSCHEDUL ED) 25.0 ML/HR Start: Februa 2024 2:14:0 0 PM UT End: Februa 2024 2:35:2 0 PM [facility] LOW [place] [id number] on July 02, 2024 2:35:00 PM [facility] Raoul inmelisa [id number] 3455 8004 904 sodium chloride 0.9% SOLN 1000. 0 ML INTRAV ENOUS ONE TIME ADMINISTRA TION (UNSCHEDUL ED) 25.0 ML/HR Start: 2024 2:14:0 0 PM UTC End: 2024 10:06: 00 PM [place] LOW [place] [id number] on July 03, 2024 5:25:00 AM [place] Discont inued [id number] 5677 5034 542 PROPOFOL 500 MG/50ML EMUL 500.0 MG INTRAV ENOUS ONE TIME ONLY (SCHEDULED DOSE) 20.833 MG/HR Start: 2024 3:44:0 0 PM UTC End: 2024 10:06: 00 PM UTC CARLOS Argueta [id number] on July 05, 2024 3:47:00 PM [place] SOCIAL HISTORY SOCIAL HISTORY SNOMED-CT Social History Element Description Effective Dates Offered Cessation Comment UpdatedBy [id number] Current Tobacco smoking status Never Smoked [id number] on June 30, 2024 8:05:47 PM [place] SOCIAL HISTORY - Gender Sex: Female SOCIAL HISTORY - Status : status i nformation is not available Intention in Next Year: intention information is not available SOCIAL HISTORY - Sexual Behavior Sexual Orientation Gender Identity SNOMED-CT Description SNO MED -CT Description Activity Level No of Partners Partner Type UpdatedBy Information is not available VITAL SIGNS PATIENT VITAL SIGNS This section displays the mo st recent value for each vital sign as of July 07, 2024 1:23:03 PM [facility] Loinc Code Vital Sign Activity Date Result Updated By 8302-2 Body height July 02 2:33:31 PM UT 167.64 cm (66.0 in) [id number] on July 02, 2024 2:33:31 PM [facility] 16936-6 Body mass index (BMI) [Ratio] July 02, 2024 2:33:31 PM [place] 41.486 kg/m2 [id number] on July 02, 2024 2:33:31 PM [facility] 3140-1 Body Surface Area Derived From Formula July 02, 2024 2:33:31 PM UT 2.2253 m2 [id number] on July 02, 2024 2:33:31 PM [facility] 68611-3 Body weight Measured July 02, 2024 2:33:31 PM [place] 116.6 kg (257.0 lb) [id number] on July 02, 2024 2:33:31 PM [facility] PEDIATRIC GROWTH CHART - VITAL SIGNS This section displays Head C ircumference Percentile, Weight for Length Percentile and BMI Percentile Loinc Code Pediatric Measure Age (Months) Result Updat ed By No Pediatric Growth Chart Pe rcentile Information Available. PROCEDURES PATIENT PROCEDURES CODE SYSTEM DESCRIPTION STATUS PERFORMED DATE UPD ATED BY [id number] SNOMED-CT Colonoscopy completed July 02, 2024 5:00:00 AM [facility] [id number] on July 02, 2024 3:47:55 PM [facility] PROCEDURE NOTE Procedure Note information i s not available. HEALTH CONCERNS Problems Concern Status Health Concern problem infor mation not available. Smoking Status Status Years Used Consumed packs p er day Health Concern smoking histo ry information not available. Family History Concern Status Health Concern family histor y information not available. ENCOUNTERS ENCOUNTER INFORMATION Reason for Visit [place] COLON Admission July 02, 2024 2:06:[address] [address] Discharge July 02, 2024 10:06:00 PM [facility] DISCHARGED TO HOME OR SELF CARE ENCOUNTER DIAGNOSES Notes information is not haresh ilable. Code System Diagnosis Onset Date Diagnosis information is not available. ABSTRACT DIAGNOSES Code System Diagnosis Updated By Z12.11 ICD10 ENCOUNTER FOR SC REENING FOR MALIGNANT NEOPLASM OF COLON [id number] on July 07, 2024 1:22:34 PM [facility] Z12.11 ICD10 ENCOUNTER FOR SC REENING FOR MALIGNANT NEOPLASM OF COLON [id number] on July 07, 2024 1:22:34 PM [facility] K57.30 ICD10 DIVERTICULOSIS O F LARGE INTESTINE WITHOUT PERFORATION OR ABSCESS WITHOUT BLEEDING [id number] on July 07, 2024 1:22:34 PM [facility] I10 ICD10 ESSENTIAL (PRIMARY) HYPERTEN ROMAN [id number] on July 07, 2024 1:22:34 PM [facility] E78.5 ICD10 HYPERLIPIDEMIA, UNSPECIFIED [id number] on July 07, 2024 1:22:34 PM [facility] G47.30 ICD10 SLEEP APNEA, UNSPECIFIED AAD 6617 on July 07, 2024 1:22:34 PM [facility] E66.01 ICD10 MORBID (SEVERE) OBESITY DUE TO EXCESS CALORIES [id number] on July 07, 2024 1:22:34 PM [facility] K76.0 ICD10 FATTY (CHANGE OF ) LIVER, NOT ELSEWHERE CLASSIFIED [id number] on July 07, 2024 1:22:34 PM UTC M19.90 ICD10 UNSPECIFIED OSTE OARTHRITIS, UNSPECIFIED SITE [id number] on July 07, 2024 1:22:34 PM UTC R31.29 ICD10 OTHER MICROSCOPIC HEMATURIA [id number] on July 07, 2024 1:22:34 PM UTC E03.9 ICD10 HYPOTHYROIDISM, UNSPECIFIED [id number] on July 07, 2024 1:22:34 PM UTC Z90.710 ICD10 ACQUIRED ABSENCE OF BOTH CERVIX AND UTERUS [id number] on July 07, 2024 1:22:34 PM UTC Z79.899 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 SINGH THERAPY [id number] on July 07, 2024 1:22:34 PM UTC Z88.2 ICD10 ALLERGY STATUS TO SULFONAMID ES [id number] on July 07, 2024 1:22:34 PM [place] Z88.0 ICD10 ALLERGY STATUS TO PENICILLIN [id number] on July 07, 2024 1:22:34 PM [facility] CARE TEAM Care Sanitation Worker Role ALEXANDRIA POOL Primary Care SHYANNE CASE Surgeon SHYANNE CASE Admitting SHYANNE GONZALEZ Primary Attending CARE TEAM CARE movie projectionist Role on Team Status Start Date End Date Update d By CARLOS ABEL Surgeon normal June 062024 2:06:00 PM [facility] July 02, 2024 10:06:00 PM [place] [id number] on July 06, 2024 1:41:24 PM [facility] normal June 24, 2024 12:57:34 PM [facility] July 02, 2024 10:06:00 PM UT [id number] on July 06, 2024 1:41:24 PM [facility] CASE SHYANNE ABEL Attending normal June 062024 12:57:34 PM UT July 02, 2024 10:06:00 PM UT [id number] on July 06, 2024 1:41:24 PM [facility] CASE SHYANNE ABEL Admitting normal June 062024 12:57:34 PM UT July 02, 2024 10:06:00 PM UT [id number] on July 06, 2024 1:41:24 PM [facility]
== END 2024-08-07 23:59 | disposition home or self-care (01) ==
LOC: LAB 11:20
PROVIDERS: PCP Nurse Practitioner Family; Visit Provider Nurse Practitioner Family
DX: R74.8 Abnormal levels of other serum enzymes (principal); K76.0 Fatty (change of) liver, not elsewhere classified
CPT/HCPCS: 36415; 80053; 80074; 85384; 86803

== ENCOUNTER 2024-08-19 14:09 | Outpatient (CLI) | payer BC, SELFPAY ==
--- OUTSIDE RECORDS SUMMARY | 2024-08-19 14:12 | XMS_ITS | Data Portability ---
Author Organization ID - NT - [place] & TONNY Casillas ADMIN Address [address] [place] [id number] Care Team Providers Care Assistant Manager Bilingual Name Role Phone HILARY POOL Primary Care Provider [phone] Assessment Encounter Date Assessment Date Assessment LastModified [...] NSR LAST ECHO: 07/05/2022 EJECTION FRACTION 65-70%. [id number] LVH. NORMAL VALVES LAST ISCHEMIC EVAL: 12/19/2020 ABNORMAL EXERCISE EKG. MODERATE REDUCTION IN FUNCTIONAL CAPACITY. ISCHEMIA OF THE APICAL, APICAL ANTERIOR AND APICAL LATERAL LE. HYPERDYNAMIC LEFT VENTRICULAR SYSTOLIC FUNCTION. LAST HEART CATH: 03/27/2021 [facility]. LVEDP 8. TRIVIAL CORONARY ARTERY DISEASE [id number] DIFFUSE CORONARY CALCIFICATION. LAST LDL: 10/22/2018- This note was dictated using [employer] software. If something is unclear, or does not make sense, please do not hesitate to contact our office at [phone] for clarification. [email or web address] Not available 03/20/2023 15:47:11 [...] baseline LAST ECHO: 07/05/2022 EJECTION FRACTION 65-70%. [id number] LVH. NORMAL VALVES LAST ISCHEMIC EVAL: 12/19/2020 ABNORMAL EXERCISE EKG. MODERATE REDUCTION IN FUNCTIONAL CAPACITY. ISCHEMIA OF THE APICAL, APICAL ANTERIOR AND APICAL LATERAL LE. HYPERDYNAMIC LEFT VENTRICULAR SYSTOLIC FUNCTION. LAST HEART CATH: 03/27/2021 [facility]. LVEDP 8. TRIVIAL CORONARY ARTERY DISEASE [id number] DIFFUSE CORONARY CALCIFICATION. LAST LDL: 10/22/2018- eduin [...] baseline LAST ECHO: 07/05/2022 EJECTION FRACTION 65-70%. [id number] LVH. NORMAL VALVES LAST ISCHEMIC EVAL: 12/19/2020 ABNORMAL EXERCISE EKG. MODERATE REDUCTION IN FUNCTIONAL CAPACITY. ISCHEMIA OF THE APICAL, APICAL ANTERIOR AND APICAL LATERAL LE. HYPERDYNAMIC LEFT VENTRICULAR SYSTOLIC FUNCTION. LAST HEART CATH: 03/27/2021 [facility]. LVEDP 8. TRIVIAL CORONARY ARTERY DISEASE [id number] DIFFUSE CORONARY CALCIFICATION. LAST LDL: 10/22/2018- 81 [...] baseline LAST ECHO: 07/05/2022 EJECTION FRACTION 65-70%. [id number] LVH. NORMAL VALVES LAST ISCHEMIC EVAL: 12/19/2020 ABNORMAL EXERCISE EKG. MODERATE REDUCTION IN FUNCTIONAL CAPACITY. ISCHEMIA OF THE APICAL, APICAL ANTERIOR AND APICAL LATERAL LE. HYPERDYNAMIC LEFT VENTRICULAR SYSTOLIC FUNCTION. LAST HEART CATH: 03/27/2021 [facility]. LVEDP 8. TRIVIAL CORONARY ARTERY DISEASE [id number] DIFFUSE CORONARY CALCIFICATION. LAST LDL: 10/22/2018- 81 [...] baseline LAST ECHO: 07/05/2022 EJECTION FRACTION 65-70%. [id number] LVH. NORMAL VALVES LAST ISCHEMIC EVAL: 12/19/2020 ABNORMAL EXERCISE EKG. MODERATE REDUCTION IN FUNCTIONAL CAPACITY. ISCHEMIA OF THE APICAL, APICAL ANTERIOR AND APICAL LATERAL LE. HYPERDYNAMIC LEFT VENTRICULAR SYSTOLIC FUNCTION. LAST HEART CATH: 03/27/2021 [facility]. LVEDP 8. TRIVIAL CORONARY ARTERY DISEASE [id number] DIFFUSE CORONARY CALCIFICATION. LAST LDL: 02/20/2024-82 82. [...] Soft tissue hematoma in the parietal scalp. BAKARI Malagon LPN, I AM SCRIBING FOR, AND IN THE OFFICE/PRESENCE OF, FARHAN RICHMOND MD. IFARHAN M.D. PERFORMED THE SERVICES DESCRIBED IN THIS DOCUMENTATION, SCRIBED BY BAKARI WONG LPN IN MY PRESENCE, AND IT IS BOTH ACCURATE AND COMPLETE. [email or web address] Not available 04/16/2024 10:44:20 Plan of Treatment Reminders Order Date Submit Date Provider Last Modified By Organization Details Last Modified Time Details Appointments Establish ed Visit 15 min 2024 08:45A M Kamran Moy PA-C Not available Not available Not available Lab TSH + free T4, serum [address] (Registration ), [address], [place], [address], 02/27/2024 07:46:54 CMP, serum or plasma 2023 024 [facility] (Registration ), [address], [place], [address], 02/21/2024 06:14:35 magnesium , serum or plasma 2023 024 [facility] (Registration ), [place], [address], 02/21/2024 06:14:38 vitamin D, 25-hydrox y, total, serum 2023 [facility] (Registration ), [address], [place], [address], 02/21/2024 08:18:21 ESR (erythroc yte sedimenta tion rate), blood 2023 [facility] (Registration ), [address], [place], [address], 02/20/2024 13:11:47 CRP, high sensitivi ty, serum or plasma [address] (Registration ), [address], [place], [address], 02/27/2024 07:47:08 lipid panel, serum 2023 [facility] (Registration ), [address], [place], [address], 02/21/2024 06:14:37 vitamin B12 + folate, serum or blood [address] (Registration ), [address], [place], [address], 02/27/2024 07:47:20 pro BNP (pro B-type natriuret ic peptide), serum or plasma [address] (Registration ), [address], [place], [address], 02/27/2024 07:47:31 CBC w/ auto diff 2023 [facility] (Registration ), [address], [place], [address], 02/20/2024 11:35:24 TSH + free T4, serum 2023 [facility] (Registration ), [address], [place], [address], 12/26/2023 09:12:39 CMP, serum or plasma 2023 [facility] (Registration ), [address], [place], [address], 12/26/2023 09:12:51 magnesium , serum or plasma [address] [place] [address] (Registration ), [address], [place], [address], 12/26/2023 09:13:05 vitamin D, 25-hydrox y, total, serum 2023 [facility] (Registration ), [address], [place], [address], 12/26/2023 09:13:46 vitamin B12 + folate, serum or blood 2023 [facility] (Registration ), [address], [place], [address], 12/26/2023 09:16:53 CBC w/ auto diff 2023 [facility] (Registration ), [address], [place], [address], 12/26/2023 09:18:10 Referral None recorded. Procedures None recorded. Surgeries None recorded. Imaging US, liver 2023 [facility] (Centralized Scheduling), [address], [place], [address], 05/06/2024 14:07:21 nuclear stress test [id number] [place] [address] (Centralized Scheduling), [address] [place] [address] [place], [address], 11/24/2023 10:48:44 electroca rdiogram 2023 024 [facility], [address] [place] [address] [address], [place], [address], 11/17/2023 10:41:55 US, echocardi ogram, transthor acic, complete, w/ color flow [email or web address] [place] [address] (Centralized Scheduling), [address] [place] [address] , [place], [address], 12/01/2023 12:42:58 electroca rdiogram [email or web address], [address] [place] [address] [address], [place], [address], 03/20/2023 15:11:10 Medication Orders atorvasta tin 20 mg tablet 2023 024 [facility], [address] [place], [address], 04/16/2024 10:41:19 omeprazol e 40 mg capsule,d elayed release [address] [facility], [address] [place], [address], 12/19/2023 11:24:29 furosemid e 40 mg tablet 2023 024 [email or web address] 4 [facility], [address] [place], [address], 02/20/2024 10:05:24 spironola ctone 25 mg tablet 2023 024 [facility], [address] [place], [address], 02/20/2024 10:13:27 nebivolol 5 mg tablet 2022 023 [facility], [address] [place], [address], 03/20/2023 15:11:16 Patient TargetsNo targets recorded. Patient InstructionsNo instructions recorded. Reason for Referral None Reported. Results Created Date Observation Date Name Description Value Unit Range Abnormal Flag Note LastModifiedBy Organization Detail LastModifiedTime 02/20/2002/20/2024 CBC W/AUT O DIFFE RENTI AL note SEE NOTE Order ing Provi jessica: Farhan padron MD Not Available [address] , [place], [address], 02/20/2024 11:35:24 02/20/20 24 02/20/2024 CBC W/AUT O DIFFE RENTI AL white blood cell 6.2 10e3/ uL 4.5-13 .0 normal Not Available [address], [place], [address], 02/20/2024 11:35:24 02/20/20 24 02/20/2024 CBC W/AUT O DIFFE RENTI AL red blood cell 4.40 10e6/ uL 3.80-5 .10 normal Not Available [address] [place]ista, [place], [address], 02/20/2024 11:35:24 02/20/20 24 02/20/2024 CBC W/AUT O DIFFE RENTI AL hemoglobin 13.2 g/dL 11.5-1 5.3 normal Not Available [address] [place], [place], [address], 02/20/2024 11:35:24 02/20/20 24 02/20/2024 CBC W/AUT O DIFFE RENTI AL hematocrit 39.8 % 34.0-4 6.0 normal Not Available [address] [place]ista, [place], [address], 02/20/2024 11:35:24 02/20/20 24 02/20/2024 CBC W/AUT O DIFFE RENTI AL mean cell volume 91 fL 78.0-9 8.0 normal Not Available [address] [place], [place], [address], 02/20/2024 11:35:24 02/20/2002/20/2024 CBC W/AUT O DIFFE RENTI AL mean cell HGB 30.0 pg 25.0-3 5.0 normal Not Available [address] [place], [place], [address], 02/20/2024 11:35:24 02/20/2002/20/2024 CBC W/AUT O DIFFE RENTI AL mean cell HGB concentratio n 33.2 g/dL 31.0-3 6.0 normal Not Available [place] [address], [place], [address], 02/20/2024 11:35:24 02/20/20 24 02/20/2024 CBC W/AUT O DIFFE RENTI AL red cell distribution width 14.5 % 11.0-1 5.0 normal Not Available [address] [place], [place], [address], 02/20/2024 11:35:24 02/20/20 24 02/20/2024 CBC W/AUT O DIFFE RENTI AL platelet count 174 10e3/ uL 150-40 0 normal Not Available [address] [place], [place], [address], 02/20/2024 11:35:24 02/20/20 24 02/20/2024 CBC W/AUT O DIFFE RENTI AL immature granulocyte % 1 0-1 normal Not Available [address] , [place], [address], 02/20/2024 11:35:24 02/20/20 24 02/20/2024 CBC W/AUT O DIFFE RENTI AL neutrophil % 62 % 35-75 normal Not Available [address] [place], [place], [address], 02/20/2024 11:35:24 02/20/20 24 02/20/2024 CBC W/AUT O DIFFE RENTI AL lymphocyte % 30 % 10-50 normal Not Available [address] , [place], [address], 02/20/2024 11:35:24 02/20/20 24 02/20/2024 CBC W/AUT O DIFFE RENTI AL monocyte % 7 % 0-15 normal Not Available [address] [place], [place], [address], 02/20/2024 11:35:24 02/20/20 24 02/20/2024 CBC W/AUT O DIFFE RENTI AL eosinophil % 1 % 0-5 normal Not Available [address] , [place], [address], 02/20/2024 11:35:24 02/20/20 24 02/20/2024 CBC W/AUT O DIFFE RENTI AL basophil % 0 % 0-5 normal Not Available [address] [place], [place], [address], 02/20/2024 11:35:24 02/20/20 24 02/20/2024 CBC W/AUT O DIFFE RENTI AL immature granulocyte # 0.03 x1000 /uL 0-0.05 normal Not Available [address], [place], [address], 02/20/2024 11:35:24 02/20/20 24 02/20/2024 CBC W/AUT O DIFFE RENTI AL neutrophil # 3.87 x1000 /uL 1.50-8 .00 normal Not Available [place] [address], [place], [address], 02/20/2024 11:35:24 02/20/20 24 02/20/2024 CBC W/AUT O DIFFE RENTI AL lymphocyte # 1.84 x1000 /uL 1.20-5 .20 normal Not Available [address] [place], [place], [address], 02/20/2024 11:35:24 02/20/20 24 02/20/2024 CBC W/AUT O DIFFE RENTI AL monocyte # 0.43 x1000 /uL 0.40-0 .90 normal Not Available [place] [address], [place], [address], 02/20/2024 11:35:24 02/20/20 24 02/20/2024 CBC W/AUT O DIFFE RENTI AL eosinophil # 0.03 x1000 /uL 0.00-0 .50 normal Not Available [place] [address], [place], [address], 02/20/2024 11:35:24 02/20/20 24 02/20/2024 CBC W/AUT O DIFFE RENTI AL basophil # 0.02 x1000 /uL 0.00-0 .30 normal Not Available [place] [address], [place], [address], 02/20/2024 11:35:24 02/20/20 24 02/20/2024 CBC W/AUT O DIFFE RENTI AL NRBC automated 0.0 /100_ WBC Not Available [address], [address], 02/20/2024 11:35:24 02/20/20 24 02/20/2024 CBC W/AUT O DIFFE NBA MCDONOUGH performing lab SEE NOTE ML - [facility] [address] [facility] [place] [id number] Not Available [address] , [place], [address], 02/20/2024 11:35:24 02/20/20 24 02/20/2024 SEDIM ENTAT ION RATE note SEE NOTE Order ing Provi jessica: Farhan padron MD Not Available [address] , [place], [address], 02/20/2024 13:11:47 02/20/20 24 02/20/2024 SEDIM ENTAT ION RATE sedimentatio n rate 6 mm/HR 0-30 normal Not Available [address] , [place], [address], 02/20/2024 13:11:47 02/20/2002/20/2024 SEDIM ENTAT ION RATE performing lab SEE NOTE ML [facility] R [address] [facility] [address] Not Available [address] , [place], [address], 02/20/2024 13:11:47 02/20/2002/20/2024 COMP METAB OLIC PANEL note SEE NOTE Order ing Provi jessica: Farhan padron MD Not Available [address] [place], [place], [address], 02/21/2024 06:14:35 02/20/20 24 02/20/2024 COMP METAB OLIC PANEL sodium 140 mmol/ L 136-14 5 normal Not Available [address] , [place], [address], 02/21/2024 06:14:35 02/20/2002/20/2024 COMP METAB OLIC PANEL potassium 4.6 mmol/ L 3.5-5. 1 normal Not Available [address] [place], [place], [address], 02/21/2024 06:14:35 02/20/2002/20/2024 COMP METAB OLIC PANEL chloride 102 mmol/ L 98-107 normal Not Available [address] [place], [place], [address], 02/21/2024 06:14:35 02/20/2002/20/2024 COMP METAB OLIC PANEL carbon dioxide 29 mmol/ L 24-33 normal Not Available [address] [place], [place], [address], 02/21/2024 06:14:35 02/20/2002/20/2024 COMP METAB OLIC PANEL anion gap 13.6 mmol/ L 10-20 normal Not Available [place] [address], [place], [address], 02/21/2024 06:14:35 02/20/20 24 02/20/2024 COMP METAB OLIC PANEL glucose 108 mg/dL 70-99 high Not Available [address] [place], [place], [address], 02/21/2024 06:14:35 02/20/20 24 02/20/2024 COMP METAB OLIC PANEL blood urea nitrogen 11 mg/dL 7-18 normal Not Available [address] [place], [place], [address], 02/21/2024 06:14:35 02/20/20 24 02/20/2024 COMP METAB OLIC PANEL creatinine 1.01 mg/dL 0.55-1 .02 normal Not Available [address] , [place], [address], 02/21/2024 06:14:35 02/20/2002/20/2024 COMP METAB OLIC PANEL GFR (estimated) 63 [...] CKD-E PI calcu lator is easil y seashira hable on the inter net. Calcu lated [...] care of your patie nt. Not Available [address] , [place], [address], 02/21/2024 06:14:35 02/20/2002/20/2024 COMP METAB OLIC PANEL BUN/creatini ne ratio 10 12-20 low Not Available [address] , [place], [address], 02/21/2024 06:14:35 02/20/2002/20/2024 COMP METAB OLIC PANEL total protein 6.8 g/dL 6.4-8. 2 normal Not Available [address] [place], [place], [address], 02/21/2024 06:14:35 02/20/2002/20/2024 COMP METAB OLIC PANEL albumin 3.7 g/dL 3.4-5. 0 normal Not Available [address] [place], [place], [address], 02/21/2024 06:14:35 02/20/2002/20/2024 COMP METAB OLIC PANEL globulin 3.1 g/dL 1.5-4. 0 normal Not Available [address] [place], [place], [address], 02/21/2024 06:14:35 02/20/2002/20/2024 COMP METAB OLIC PANEL albumin/glob ulin ratio 1.2 0.5-2. 0 normal Not Available [address] [place], [place], [address], 02/21/2024 06:14:35 02/20/2002/20/2024 COMP METAB OLIC PANEL calcium 9.2 mg/dL 8.5-10 .1 normal Not Available [address] [place], [place], [address], 02/21/2024 06:14:35 02/20/20 24 02/20/2024 COMP METAB OLIC PANEL osmolality serum calculated 278 mOsm/ kg 272-28 8 normal Not Available [address] [place], [place], [address], 02/21/2024 06:14:35 02/20/2002/20/2024 COMP METAB OLIC PANEL bilirubin total 0.9 mg/dL 0.2-1. 0 normal Use of this assay is not recom dandy d for patie nts under going treat ment with Eltro mbopa g due to the poten tial for false ly eleva giselle resul ts. Not Available [address] , [place], [address], 02/21/2024 06:14:35 02/20/2002/20/2024 COMP METAB OLIC PANEL SGOT/AST 45 U/L 15-37 high Not Available [address] , [place], [address], 02/21/2024 06:14:35 02/20/20 24 02/20/2024 COMP METAB OLIC PANEL SGPT/ALT 63 U/L 14-59 high Not Available [address] , [place], [address], 02/21/2024 06:14:35 02/20/20 24 02/20/2024 COMP METAB OLIC PANEL alkaline phosphatase total 126 U/L 46-116 high Not Available [address] , [place], [address], 02/21/2024 06:14:35 02/20/20 24 02/20/2024 COMP METAB OLIC PANEL performing lab SEE NOTE - [facility] R [address] [facility] [address] Not Available [address] , [place], [address], 02/21/2024 06:14:35 02/20/20 24 02/20/2024 LIPID PANEL note SEE NOTE Order ing Provi jessica: Farhan padron MD Not Available [address] , [place], [address], 02/21/2024 06:14:37 02/20/2002/20/2024 LIPID PANEL triglyceride s 98 mg/dL < 150 normal Natio nal Candice stero l Educa tion Progr am (NCEP ) Guide lines : Susan l < 150 mg/dL Borde rline 150 - 199 mg/dL High 200 - 499 mg/dL Very High >or= 500 mg/dL Not Available [address] , [place], [address], 02/21/2024 06:14:37 02/20/2002/20/2024 LIPID PANEL cholesterol 161 mg/dL < 200 normal Natio nal Candice stero l Educa tion Progr am (NCEP ) Guide lines : Jessee able < 200 mg/dL Borde rline Risk 200 - 239 mg/dL High Risk >or= 240 mg/dL Not Available [address] , [place], [address], 02/21/2024 06:14:37 02/20/2002/20/2024 LIPID PANEL HDL cholesterol 59 mg/dL > 60 low Natio nal Candice stero l Educa tion Progr am Adult Treat ment Panel III (NCEP -ATP III) Guide lines : < 40 mg/dl : Low HDL-C holes terol >or= 60 mg/dl : High HDL-C holes terol Not Available [address] , [place], [address], 02/21/2024 06:14:37 02/20/2002/20/2024 LIPID PANEL LDL cholesterol 82 mg/dL < 100 normal Natio nal Candice stero l Educa tion Progr am (NCEP ) Guide lines : Optim al < 100 mg/dL Near/ Above Optim al 100 - 129 mg/dL Borde rline High 130 - 159 mg/dL High 160 - 189 mg/dL Very High >or= 190 mg/dL Not Available [address] , [place], [address], 02/21/2024 06:14:37 02/20/2002/20/2024 LIPID PANEL performing lab SEE NOTE ML - [facility] [address] [facility] [address] Not Available [address] , [place], [address], 02/21/2024 06:14:37 02/20/2002/20/2024 MAGNE SIUM note SEE NOTE Order ing Provi jessica: Farhan padron MD Not Available [address] , [place], [address], 02/21/2024 06:14:38 02/20/20 24 02/20/2024 MAGNE SIUM magnesium 2.0 mg/dL 1.8-2. 4 normal Not Available [address] , [place], [address], 02/21/2024 06:14:38 02/20/2002/20/2024 MAGNE SIUM performing lab SEE NOTE ML [facility] [address] [facility] [address] [address] [facility] [address] Not Available [address] , [place], [address], 02/21/2024 06:14:38 02/20/2002/20/2024 VITAM IN B12 note See Note Order ing Provi jessica: Farhan padron MD Not Available [address] , [place], [address], 02/21/2024 06:14:39 02/20/20 24 02/20/2024 VITAM IN B12 vitamin B12 485 pg/mL 232-12 45 Perfo rmed At: CB, [facility] [address] [place], [address] [facility]9 Segundo cox, PhD, Phone : [phone] Not Available [address] , [place], [address], 02/21/2024 06:14:39 02/20/2002/20/2024 VITAM IN B12 performing lab see note LC2 - [facility] RP CLIEN T# [id number] [place] [id number] Not Available [address] , [place], [address], 02/21/2024 06:14:39 02/20/2002/20/2024 FOLIC ACID note See Note Order ing Provi jessica: Farhan padron MD Not Available [address] , [place], [address], 02/21/2024 06:14:39 02/20/2002/20/2024 FOLIC ACID folic acid 11.6 NG/mL >3.0 . A serum folat e rika ntrat ion of less than 3.1 ng/mL is consi dered to repre sent clini suzie defic iency . Not Available [address] , [place], [address], 02/21/2024 06:14:39 02/20/2002/20/2024 FOLIC ACID performing lab see note LC2 - [facility] RP CLIEN T# [id number] [place] [id number] Not Available [address] [place], [address], 02/21/2024 06:14:39 02/20/2002/20/2024 THYRO ID PANEL W/TSH note See Note Order ing Provi jessica: Farhan padron MD Not Available [address] , [place], [address], 02/21/2024 06:14:40 02/20/20 24 02/20/2024 THYRO ID PANEL W/TSH T4 free 1.15 NG/dL 0.76-1 .46 normal This test may be affec giselle by high level s of bioti n, found in some presc ripti on and over- the-c ounte r suppl ement s. [place], patie nts shoul d disco ntinu e bioti n 3 days befor e testi ng. Resul ts obtai [place] after recen t bioti n inges tion shoul d be inter prete d with cauti on. Not Available [address] , [place], [address], 02/21/2024 06:14:40 02/20/20 24 02/20/2024 THYRO ID PANEL W/TSH thyroid stimulating hormone 2.48 uIU/m L 0.36-3 .74 normal This test may be affec giselle by high level s of bioti n, found in some pres ripti on and over- the-c ounte r suppl ement s. [place], patie nts shoul d disco ntinu e bioti n 3 days befor e testi ng. Resul ts obtai [place] after recen t bioti n inges tion shoul d be inter prete d with cauti on. Not Available [address] [place], [address], 02/21/2024 06:14:40 02/20/20 24 02/20/2024 THYRO ID PANEL W/TSH performing lab see note - [facility] R [address] [facility] [address] Not Available [address] [place], [address], 02/21/2024 06:14:40 02/20/20 24 02/20/2024 C-ARMANI CTIVE PROTE IN note See Note Order ing Provi jessica: Farhan padron MD Not Available [address] , [place], [address], 02/21/2024 06:14:41 02/20/2002/20/2024 C-ARMANI CTIVE PROTE IN C-reactive protein 8.6 mg/L <5.0 high NOT E NEW REFER ENCE RANGE S Not Available [address] , [place], [address], 02/21/2024 06:14:41 02/20/2002/20/2024 C-ARMANI CTIVE PROTE IN performing lab see note - [facility] R [address] [facility] [address] Not Available [address] , [place], [address], 02/21/2024 06:14:41 02/20/2002/20/2024 NT-AK OBNP note See Note Order ing Provi jessica: Farhan padron MD Not Available [address] , [place], [address], 02/21/2024 08:18:20 02/20/2002/20/2024 NT-AK OBNP nt-probnp 200 pg/mL 0-287 . The follo wing cut-p oints have been sugge sted [...] pg/mL Perfo rmed At: CB, [facility] [address] [facility], [place], [id number] [id number] Segundo cox, PhD, Phone : [phone] Not Available [address] [place], [address], 02/21/2024 08:18:20 02/20/20 24 02/20/2024 NT-AK OBNP performing lab see note LC2 - [facility] T# [id number] [place] [id number] Not Available [address] [place], [address], 02/21/2024 08:18:20 02/20/20 24 02/20/2024 VITAM IN D 25-HY DROXY note SEE NOTE Order ing Provi jessica: Farhan padron MD Not Available [address] , [place], [address], 02/21/2024 08:18:21 02/20/20 24 02/20/2024 VITAM IN D 25-HY DROXY vitamin D 25-hydroxy 21.8 NG/mL 30.0-1 00.0 low Vitam in D defic iency has been defin ed by the Insti tute of Medic ine and an Endoc rine Socie ty pract ice guide line as a level of serum 25-OH vitam in D less than 20 ng/mL (1,2) . The Endoc rine Socie ty went on to [facility] defin e vitam in D insuf ficie ncy as a level betwe en 21 and 29 ng/mL (2). 1. IOM (Inst itute of Medic ine). 2010. Dieta ry refer ence radha es for calci um and D. Natalya pacheco [place]: [employer] . 2. Ambreen becker MF, Lin jackson [place], Sonia off-F errar i HAN, et al. Evalu ation , treat ment, and preve ntion of vitam in D defic iency : an Endoc rine Socie ty clini suzie pract ice guide line. JCEM. 2010; 96(7) :4481 -30. Perfo rmed At: M[facility], [facility] [address] [facility], [place], [address] [id number] Segundo arelis cox, PhD, Phone : [phone] Not Available [address] [place], [address], 02/21/2024 08:18:21 02/20/20 24 02/20/2024 VITAM IN D 25-HY DROXY performing lab SEE NOTE LC2 - [facility] CLIEN T# [id number] [place] [id number] Not Available [address] [place] [place], [address], 02/21/2024 08:18:21 03/20/20 23 elect rocar diogr am No observ ation record ed. JEREMÍAS Vega [address] [place], [place], [address], 03/20/2023 14:47:22 03/21/20 23 03/20/2023 elect rocar diogr am No observ ation record ed. JEREMÍAS Vega [address] [place], [place], [address], 03/21/2023 15:22:37 04/01/20 23 elect rocar diogr am No observ ation record ed. [email or web address] Not Available 2022 07:59:20 11/17/19 24 elect rocar diogr am No observ ation record ed. JEREMÍAS Vega [address] [place], [place], [address], 11/17/2023 10:22:18 11/17/19 24 11/17/2023 elect rocar diogr am No observ ation record ed. 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 15272 Reason for study: Chest pain/d yspnea Patien [...] by: FARHAN RICHMOND MD CC: Hilary willard PICK UP TRUCK DRIVER; Farhan Richmond MD Dictat ed Date/T melody: 2023 (151) Techno logist : [employer], BS, SOCIAL [employer] Transc ribed Date/T melody: 2023 (151) Transc riptio nist: DR.LOH GEORGIA Ordonez onic Signat ure Date/T melody: 2023 (151) Printe d Date/T melody: 2023 (1515) BATCH NO: N/A PAGE 1 Signed Report CC'ed Logic: Orderi ng Provid er: TOÑO REAL Attend ing Provid er: TOÑO REAL Referr ing Provid er: TOÑO REAL Consul ting Provid er: DINORAH carver[address] [place] [address] , [place], [address], 12/04/2023 16:25:19 12/05/19 24 12/05/2023 - ECHO w/spe c/col or flow [facility] Name: ENOC LAZO S [address] [place] [address] Phys: Toño BALDERRAMA, [place] [address] : 1960 Age: 63 Sex: F Acct: [id number] Loc: GSaadNM PHONE #: Exam Date: 2023 Status : DEP CLI FAX #: [phone] Rad# [id number] Unit# [id number] Admit Date: 2023 EXAMS: CPT CODE: [id number] ECHO W/SPEC /COLOR FLOW 87490 Reason for study: Chest pain/d yspnea Left ventri cular diasto le: 5.5 Left ventri cular systol e: 3.9 Septal wall thickn ess: 1.0 [employer] ior wall thickn ess: 1.4 Right ventri [...] 38 mmHg Electr onical ly Signed by FARHAN RICHMOND MD on 2023 at 0841 Report ed and signed by: FARHAN RICHMOND MD PAGE 1 Signed Report (NAS NUED) [facility] Name: ENOC LAZO S [address] Phys: Toño BALDERRAMA, [place] [address] : 1960 Age: 63 Sex: F Acct: [id number] Loc: OtfMO PHONE #: [phone] Exam Date: 2023 Status : DEP CLI FAX #: [phone] Rad# [id number] Unit# [id number] Admit Date: 2023 EXAMS: CPT CODE: [id number] ECHO W/SPEC /COLOR FLOW 08515 CC: Hilary willard PICK UP TRUCK DRIVER; Farhan Richmond MD Dictat ed Date/T melody: 2023 (08) Techno logist : PAULET TA W ZEV Transc ribed Date/T melody: 2023 (840) Transc riptio nist: DR.LOH GEORGIA Ordonez onic Signat ure Date/T melody: 2023 (840) Printe d Date/T melody: 2023 (45) BATCH NO: N/A PAGE 2 Signed Report CC'ed Logic: Orderi ng Provid er: TOÑO REAL Attend ing Provid er: TOÑO REAL Referr ing Provid er: TOÑO REAL Consul ting Provid er: DINORAH WILLARD PICK UP TRUCK DRIVER HILARY moore [address] , [place], [address], 12/05/2023 08:57:18 06/11/19 25 06/11/2024 US, liver [facility] Name: ENOC LAZO S [address] [place] [address] Drive Phys: Toño BALDERRAMA, [place] [address] : 1960 Age: 63 Sex: F Acct: [id number] Loc: G.US PHONE #: Exam Date: 2024 Status : REG CLI FAX #: [phone] Rad# [id number] Unit# [id number] Admit Date: 2024 EXAMS: CPT CODE: [id number] US LIVER 65805 Histor y: INCREA SED LIVER FUNCTI ON [...] signed by: MAMIE PALMA CC: Hilary willard PICK UP TRUCK DRIVER; Farhan Richmond MD Dictat ed Date/T melody: 2024 (1212) Techno logist : LINDSA Y MORGAN Transc ribed Date/T melody: 2024 (1212) Transc riptio nist: MFR Electr onic Signat ure Date/T melody: 2024 (1212) Printe d Date/T meldoy: 2024 (1216) BATCH NO: N/A PAGE 1 Signed Report CC'ed Logic: Orderi ng Provid er: TOÑO REAL Attend ing Provid er: TOÑO REAL Referr ing Provid er: TOÑO REAL Consul ting Provid er: DINORAH IBRAHIM [facility] [address] , [place], [address], 06/11/2024 13:01:27 Result Notes None recorded. Problems Name Problem SNOMED Code Status Onset Date Resolution Date Notes Provider Name and Address Organization Details Recorded Time Increased liver function 17234353 Active 2023 Farhan Richmond MD [address] [place] [address],[facility] [address], [place], [address] , [facility] & [place] 4 10:39:52 Dyspnea 999680968 Active 2017 Dyspnea Not Available [facility] 2 23:33:28 Heart failure with normal ejection fraction 320052061 Active 2020 Heart failure with preserved ejection fraction Not Available [facility] 2 23:33:28 Family history of coronary arteriosc lerosis 078211840 Active Family history of coronary artery disease Not Available [facility] 2 23:33:28 Coronary arteriosc lerosis 06292478 Active 2020 Coronary artery disease Not Available [facility] 2 23:33:28 Abnormal results of cardiovas cular function studies 531826626 Active 2020 Abnormal results of cardiovasc ular function studies Not Available [facility] 2 23:33:28 Gastroeso phageal reflux disease 824099876 Active 2014 Gastroeso phageal reflux disease Not Available [facility] 2 23:33:28 Obesity 655720568 Active 2014 Not Available [facility] 2 23:33:28 Hypertens viky disorder 24593938 Active 2014 Not Available [facility] 2 23:33:29 Angina decubitus 21758523 Active 2020 Angina at rest Not Available [facility] 2 23:33:29 Hypertens viky heart disease without congestiv e heart failure 81143964 Active 2017 Hypertensi ve heart disease without congestive heart failure Not Available [facility] 2 23:33:29 Essential hypertens ion 08131093 Active 2020 Essential hypertensi on Essenti al hypertensi on Not Available [facility] 2 23:33:29 Palpitati ons 67846960 Active 2014 Not Available [facility] 2 23:33:29 Mitral valve regurgita tion 89472092 Active 2014 Mitral regurgitat ion Not Available [facility] 2 23:33:29 Hypothyro idism 75296722 Active 2013 Not Available [facility] 2 23:33:29 Hyperlipi demia 20845350 Active 2020 Hyperlipid aemia Hype rlipidemia Not Available [facility] 2 23:33:29 Heart murmur 30772264 Active 2022 Farhan Richmond MD [facility] [employer] [facility],[address] [facility], [place], [address] , [place] - [facility] - [facility] 3 10:20:18 Diastolic dysfuncti on 9429616 Active 2022 Farhan Richmond MD [facility] [employer] [facility],[address] [facility], [place], [address] , [place] - [facility] - [facility] 3 08:55:08 Coronary atheroscl erosis 581708999 Active 2022 Bryce Root NP [facility] [employer] [facility],[address] [facility], [place], [address] , [place] [facility] - [facility] 3 15:11:08 History of total hysterect dread 545719532 Active 2021 Barbara marte, [place] - [facility] - [facility] [place] 4 10:20:40 History of supracerv ical hysterect dread 276748571 Active 2016 Barbara marte, [place] - [facility] - [facility] & [place] 4 10:20:40 Prediabet es 340307843 Active 2020 Barbara marte, [place] - [facility] - [facility] & [place] 4 10:20:40 Tight chest 17864261 Active 2023 Farhan Richmond MD [facility] [employer] [facility],[address] [facility], [place], [address] , [place] - [facility] - [facility] & [place] 4 10:40:54 Dyspnea on exertion 59505053 Active 2023 Farhan Richmond MD [facility] [employer] [facility],[address], [place], [address] , [place] - [facility] - [facility] 4 10:41:08 Edema 596015902 Active 2023 Farhan Richmond MD [facility] code-laboration [facility],[address], [place], [address] , [place] - [facility] - [place] & [place] 4 10:41:14 Electroca rdiogram abnormal 463803997 Active 2023 Farhan Richmond MD [facility] code-laboration [facility],[address], [place], [address] , [place] - [facility] - [place] & [place] 4 15:35:20 Fatigue 29534567 Active 2023 Farhan Richmond MD [facility] code-laboration [facility],[address], [place], [address] , [place] - [facility] - [place] & [place] 4 09:37:42 Problem Notes None recorded. Procedures Surgical History Date Name Laterality Status Provider Name and Address Organization Details Recorded Time 03/27/20 21 Cardiac Catheterization completed Tere Kim [place] - [facility] [place] 09/18/2022 11:50:42 Hysterectomy completed Bakari Wong [place] - [facility] [place] 06/21/2022 10:43:11 Imaging Results Imaging Date Name Status LastModified by Organization Details LastModified Time 03/20/2023 electrocardiogram completed JEREMÍAS [address] [place], [place], [address], 03/20/2023 14:47:22 03/20/2023 electrocardiogram completed JEREMÍAS [address] [place], [place], [address], 03/21/2023 15:22:37 04/01/2023 electrocardiogram completed [email or web address] Informa tion not available 04/02/2023 07:59:20 11/17/2023 electrocardiogram completed JEREMÍAS [address] [place], [place], [address], 11/17/2023 10:22:18 11/17/2023 electrocardiogram completed JEREMÍAS [address] [place], [place], [address], 11/17/2023 13:18:20 12/04/2023 - myocard SPECT wm/ef chief catalyst operator completed [email or web address] [address] [place], [address], 12/04/2023 16:25:19 12/05/2023 - ECHO w/spec/color flow completed [email or web address] [address] [place], [address], 12/05/2023 08:57:18 06/11/2024 [email or web address] [address] [place], [address], 06/11/2024 13:01:27 Procedure Notes None recorded. Medical Equipment None Reported. Allergies Allergen ID Allergen Name Allergen Category Reaction Reaction Severity Criticality Documentation Date Start Date Code Code System Note Provider Name and Address Organization Details Recorded Time 461330 Product containin g penicilli n (product) medicatio n vomiting Not available Not available 11/17/20232007 30208 8001 SNOMED JOHNNY Abbasi [facility] [place] 4 10:19:44 2148 Penicilli n Not available Not available Not available Not available 01/09/2022 77820 RxNorm React ion: Unkno wn, sever ity: Unkno wn Not Available [facility] 2 22:21:55 85534 Substance with sulfonami de structure and antibacte rial mechanism of action (substanc e) medicatio n vomiting Not available Not available 06/21/20222007 65465 8003 SNOMED JOHNNY Abbasi [facility] [place] 4 10:19:45 Medications Name Sig Start Date [...] Updated DateTime 3 167.64 cm 40.2 kg/m2 327096. 5 g 94 % 94 % 91 /min 110 mm[Hg] 80 mm[Hg] 120 mm[Hg] 80 mm[Hg] Tere Kim [place] - [facility] [place] 3 14:39:15 Date Recorded Body height Body mass index (BMI) Body weight Oxygen saturation Oxygen saturation in Arterial blood by Pulse oximetry Heart rate Systolic blood pressure Diastolic blood pressure Provider Name and Address Organization Details Last Updated DateTime 4 167.64 cm 42.1 kg/m2 880726. 61 g 96 % 96 % 93 /min 138 mm[Hg] 92 mm[Hg] Barbara padron [place] - [facility] [place] 4 10:26:22 Date Recorded Body height Body mass index (BMI) Body weight Oxygen saturation Oxygen saturation in Arterial blood by Pulse oximetry Heart rate Systolic blood pressure Diastolic blood pressure Provider Name and Address Organization Details Last Updated DateTime 4 167.64 cm 42.3 kg/m2 507185. 2 g 93 % 93 % 96 /min 124 mm[Hg] 90 mm[Hg] Barbara Soodbritany [place] - [facility] [place] 4 09:08:10 Date Recorded Body height Body mass index (BMI) Body weight Oxygen saturation Oxygen saturation in Arterial blood by Pulse oximetry Heart rate Systolic blood pressure Diastolic blood pressure Provider Name and Address Organization Details Last Updated DateTime 4 167.64 cm 42.8 kg/m2 855369. 98 g 97 % 97 % 87 /min 144 mm[Hg] 92 mm[Hg] Barbara Nikolay padron [place] - [facility] [place] 4 10:04:39 Date Recorded Body height Body mass index (BMI) Body weight Oxygen saturation Oxygen saturation in Arterial blood by Pulse oximetry Heart rate Systolic blood pressure Diastolic blood pressure Provider Name and Address Organization Details Last Updated DateTime 4 167.64 cm 42.3 kg/m2 857202. 2 g 95 % 95 % 89 /min 118 mm[Hg] 86 mm[Hg] Barbara Soodbritany [facility] - [facility] [place] 4 10:32:06 Social History None recorded. Functional [...] SNOMED-CT Code Diagnosis ICD10 Code Diagnosis Note [id number] Farhan Richmond MD [place] [address] [address] 06/21/2022 09:56:15 06/21/2022 10:18:11 Heart murmur 29856989 R01.1 Dyspnea 056017959 R06.02 Coronary arteriosclerosis 27067967 I25.9 Essential hypertension 48184235 I10 Hypertensive disorder 38 631568 I10 [id number] Farhan Richmond MD [address] AG [address] [place], [place] [address] 09/19/2022 11:23:14 09/19/2022 11:35:44 Coronary arteriosclerosis 63709988 I25.9 Essential hypertension 70087683 I10 Hyperlipidemia 67594909 E78.5 Diastolic dysfunction 35 67295 I51.9 Mitral fuentes ve regurgitation 49651707 I34.0 Palpitations 59502124 R0 0.2 [id number] Bryce Root NP [address] AG [address] [place], [place] [address] 03/20/2023 14:22:02 03/20/2023 15:10:40 Coronary arteriosclerosis 29799671 I25.9 Essential hypertension 63080912 I10 Hyperlipidemia 19112344 E78.5 Diastolic dysfunction 35 40392 I51.9 Mitral fuentes ve regurgitation 67290932 I34.0 Coronary atherosclerosis 770820626 I25.10 [id number] Farhan Richmond MD [address] AG [address] [place], [place] [address] 11/17/2023 09:52:31 11/17/2023 10:43:46 Essential hypertension 04163470 I10 Tight chest 07715634 R07 .89 Coronary arteriosclerosis 28847608 I25.9 Dyspnea on exertion 6084 5006 R06.09 Edema 400265414 R60.9 Electrocar diogram abnormal 762648246 R94.31 Diastolic dysfunction 35 52923 I51.9 [id number] Farhan Richmond MD [address] AG [address] [place] [address] 12/19/2023 08:54:58 12/19/2023 09:39:07 Essential hypertension 29115933 I10 Coronary arteriosclerosis 07514832 I25.9 Dyspnea on exertion 6084 5006 R06.09 Edema 364829455 R60.9 Electrocar diogram abnormal 196064960 R94.31 Diastolic dysfunction 35 73586 I51.9 Fatigue 84778000 R53.83 Gastroesop hageal reflux disease without esophagitis 943183827 K21.9 [id number] Farhan Richmond MD [address] AG [address] [place] [address] 02/20/2024 09:54:30 02/20/2024 10:17:16 Essential hypertension 84854206 I10 Coronary arteriosclerosis 96977965 I25.9 Dyspnea on exertion 6084 5006 R06.09 Edema 239958661 R60.9 Electrocar diogram abnormal 082550049 R94.31 Diastolic dysfunction 35 38240 I51.9 Fatigue 34400583 R53.83 Gastroesop hageal reflux disease without esophagitis 082753219 K21.9 [id number] Farhan Richmond MD [address] AG [address] [place] [address] 04/16/2024 09:56:26 04/16/2024 10:42:25 Essential hypertension 24144242 I10 Coronary arteriosclerosis 89309906 I25.9 Dyspnea on exertion 6084 5006 R06.09 Edema 669141584 R60.9 Electrocar diogram abnormal 878077982 R94.31 Diastolic dysfunction 35 66629 I51.9 Fatigue 79807799 R53.83 Gastroesop hageal reflux disease without esophagitis 282050238 K21.9 Increased liver function 13893247 R94.5 Hyperlipidemia 70984148 E78.5 Health Concerns Section Related Observation LastModified by Organization Detai ls LastModified Time None Recorded Concern Status LastModified by Organization Details LastModified Time None Recorded Advance Directives Directive None Recorded Payers Encounter Date Sequence Insurance Name Policy Number Policy Mcnally Covered Member ID Mcnally Member ID Guarantor Name 03/20/2023 1 [place] [id number] 1 Anya S Preston [id number] Anya S Preston 11/17/2023 1 [place] [id number] 1 Anya S Preston [id number] Anya S Preston 12/19/2023 1 [place] [id number] 1 Anya S Preston [id number] Anya S Preston 02/20/2024 1 [place] [id number] 1 Anya S Efrain [id number] Anya S Preston 04/16/2024 1 [place] [id number] 1 Anya S Efrain [id number] Anya S Efrain Notes Date Note Type Note Provider Name and Address Organization Details Recorded Time 03/20/2023 text/html 6 mo f/u, no new concerns or problems Bryce Root NP [address] [place] [address],[address], [place], [address], [facility] & [place] 03/20/2023 15:47:37 11/17/2023 text/html palpitations hav e [...] Also with intermittent edema. Farhan Richmond MD [address] [place] [address],[address], [place], [address], [facility] & [place] 11/20/2023 15:35:42 12/19/2023 text/html patient is here to go over test results. Overall feels well. No chest pain pressure or tightness. Does have shortness breath and does have edema. No chest pain pressure and no orthopnea or PND. She does have fatigue. She has sleep apnea but can not wear a CPAP Farhan Richmond MD [address] [place] [address],[address], [place], [address], [facility] & [place] 12/19/2023 12:44:14 02/20/2024 text/html Still with simil ar complaints. Could not tolerate the Aldactone. Could not tolerate the higher dose of Lasix. She still complains of edema. Has shortness of breath and fatigue. She did not get the blood work done Farhan Richmond MD [address] [place] [address],[address], [place], [address], [facility] - [facility] [place] 02/21/2024 09:01:59 04/16/2024 text/html Patient has been doing well. Still has fatigue. He has had some dizziness and lightheadedness but has sinus issues. Here today to go over blood work in for further evaluation. No chest pain pressure or tightness. She does get some sharp shooting pains. No shortness of breath. No orthopnea or PND Farhan Richmond MD [address] [place] [address],[address], [place], [address], [facility] - [facility] [place] 04/16/2024 10:44:37 OBGyn Episode No OBEpisode recorded.
--- NOTE | 2024-08-19 14:13 | US_ITS ---
PROCEDURE INFORMATION: Exam: US Left Breast, Complete MG Left Diagnostic Breast Tomosynthesis Exam date and time: 08/19/2024 2:33 PM Age: 64 years old Clinical indication: Patient recalled on the basis of a screening mammogram for further evaluation; Left breast; questionable architectural distortion TECHNIQUE: Imaging protocol: Complete ultrasound of all four quadrants of the left breast and the retroareolar regions, including ultrasound of the axilla when performed. Left Diagnostic tomosynthesis and 2D mammography including computer-aided detection (CAD) when performed. Unilateral or bilateral exam. COMPARISON: [facility] DIGITAL SCREEN BILATERAL 07/21/2024 11:26 AM FINDINGS: MAMMOGRAPHY: Breast composition: There are scattered areas of fibroglandular density Breast mammogram findings: Repeat left mammogram including an exaggerated lateral craniocaudal view and spot compression views of the left breast do not demonstrate any persistent focal architectural distortion. No suspicious microcalcifications. No skin thickening or axillary adenopathy. ULTRASOUND: Breast ultrasound findings: Sonographic images of the left breast including the retroareolar region, all 4 quadrants and the axilla do not demonstrate any solid masses. Minimal subcentimeter cystic changes noted in the left upper outer quadrant. No architectural distortion or acoustical shadowing. No skin thickening or axillary adenopathy. Other findings: (based on the most recent screening mammogram report). IMPRESSION: No mammographic or sonographic evidence of malignancy. Annual bilateral mammographic screening is recommended unless otherwise clinically indicated. ASSESSMENT: BI-RADS Category 2: Benign.
== END 2024-08-19 23:59 | disposition home or self-care (01) ==
LOC: RAD 14:10
PROVIDERS: PCP Nurse Practitioner Family; Visit Provider Nurse Practitioner Family
DX: R92.8 Other abnormal and inconclusive findings on diagnostic imaging of breast (principal)
CPT/HCPCS: 76641; 77061; 77065; G0279